=== PATIENT | male | born 1930 | race Caucasian/White ===

== ENCOUNTER 2016-05-25 10:53 | Inpatient (IN) | payer MEDICARE ==
[2016-05-25 12:13] LABS: Hematocrit 32 % (42-52); Hemoglobin 10.6 g/dl (14.0-18.0); Mean Corpuscular HGB Conc 33 g/dl (31-36); Mean Corpuscular Hemoglobin 32 pg (27-31); Mean Corpuscular Volume 95 fL (80-94); Mean Platelet Volume 10 um3 (7.4-10.4); Red Blood Count 3.35 10^6/ul (4.0-5.4); Red Cell Distribution Width 15 % (10.5-15); White Blood Count 14.7 10^3/ul (3.5-10.8)
[2016-05-25 12:30] LABS: Albumin 3.9 g/dL (3.2-5.2); BUN/Creatinine Ratio 44.9 (8-20); Calcium 9.6 mg/dL (8.6-10.3); EGFR African American 35.7 (>60); EGFR Non-African American 27.7 (>60); Globulin 2.8 g/dL (2-4); Potassium 4.8 mmol/L (3.5-5.0); Total Bilirubin 0.7 mg/dL (0.2-1.0); Total Protein 6.7 g/dL (6.4-8.9)
[2016-05-25] MEDS ORDERED: Pantoprazole IV* 40 MG IV ONE (13:29)
--- NOTE | 2016-05-25 13:40 | ED ---
Freddy Valadez Adam, scribed for Eufemia Warren MD on 05/25/16 at 1136 . Complex/Multi-Sys Presentation - HPI Summary HPI Summary: Pt is an 85 year old male presenting with black stool. He also has chronic BLE edema which has been growing worse. He denies CP, SOB, and any other complaints , although his states that he has not been feeling well for the past few days and has also developed ecchymosis in his hands. Pt was on Xarelto for about 1 month but went off it 2 days ago. Pt saw Dr. Cagle on 05/05. The note from that visit indicates that the pt had a silent SD in the past 6 months. EF of 35%, severe aortic stenosis, CHF, second degree heart block with bradycardia. They discussed the pt being on Xarelto and ASA because it is a little bit of a risk. His troponin was 0.10 that visit. PMHx also includes HLD, hypothyroidism, A Fib, PMR, spinal stenosis, chronic back pain (on narcotics), and he is on prednisone. Pt is a former smoker. Negative FMHx of HTN, DM, and cardiac disease. - History Of Current Complaint Chief Complaint: EDGIBleed Hx Obtained From: Patient Onset/Duration: Gradual Onset, Lasting Days, Still Present Timing: Constant Severity Currently: Moderate Severity Initially: Moderate Aggravating Factor(s): Unknown Alleviating Factor(s): Nothing Associated Signs And Symptoms: Positive: Other - "Not feeling well" (per pt's ), ecchymosis in hands. Negative: SOB, Chest Pain - Allergies/Home Medications Allergies/Adverse Reactions: Allergies Allergy/AdvReac Type Severity Reaction Status Date / Time Pregabalin [From Lyrica] Allergy Severe Agitation Verified 05/25/16 11:05 Tetanus Toxoid Allergy Unknown Unknown Verified 05/25/16 11:05 Reaction Details Home Medications: Home Medications Alendronate (NF) [Fosamax (NF)] 70 mg PO WEEKLY 05/25/16 [History Confirmed ] Aspirin Low Dose CHEW TAB* [Aspirin Low Dose TAB*] 81 mg PO DAILY 05/25/16 [ History Confirmed 05/25/16] Atorvastatin* [Lipitor*] 40 mg PO DAILY 05/25/16 [History Confirmed 05/25/16] Furosemide TAB* [Lasix TAB*] 60 mg PO DAILY 05/25/16 [History Confirmed 05/25/16 ] Hydrocodone-Acetaminophen [Hydrocodone/Acetaminophen 10-325 mg] 1 tab PO QID PRN MDD 4 tabs 05/25/16 [History Confirmed 05/25/16] Levothyroxine TAB* [Synthroid TAB*] 75 mcg PO DAILY 05/25/16 [History Confirmed 05/25/16] Lisinopril [Lisinopril 2.5 MG-] 2.5 mg PO DAILY 05/25/16 [History Confirmed ] Multivitamins/Minerals TAB* [Theragran/minerals TAB*] 1 tab PO DAILY 05/25/16 [ History Confirmed 05/25/16] Spironolactone [Aldactone 25 MG-] 25 mg PO DAILY 05/25/16 [History Confirmed ] predniSONE TAB* [Deltasone TAB*] 15 mg PO BEDTIME 05/25/16 [History Confirmed ] PMH/Surg Hx/FS Hx/Imm Hx Endocrine/Hematology History: Reports: Hx Thyroid Disease - HYPO Denies: Hx Anticoagulant Therapy, Hx Diabetes Cardiovascular History: Reports: Hx Valvular Heart Disease - AORTIC STENOSIS, Other Cardiovascular Problems/Disorders - bradycardia/atrial fibrillation/ flutter. On xarelto Denies: Hx Congestive Heart Failure, Hx Hypertension, Hx Pacemaker/ICD, Hx Peripheral Vascular Disease Respiratory History: Reports: Hx Asthma, Hx Sleep Apnea - CPAP 03/03/2016 GI History: Reports: Hx Gastroesophageal Reflux Disease, Hx Ulcer - 2006 History: Reports: Other Problems/Disorders - prostate ca Denies: Hx Renal Disease Musculoskeletal History: Reports: Hx Arthritis, Hx Back Problems - multiple compression fractures, Hx Orthopedic Injury - ORIF LEFT HUMERUS FX 2002, Other Musculoskeletal History - PELVIX FX Sensory History: Reports: Hx Contacts or Glasses, Hx Vision Problem, Hx Hearing Aid, Hx Hearing Problem Denies: Hx Cataracts, Hx Glaucoma Opthamlomology History: Reports: Hx Contacts or Glasses, Hx Vision Problem Denies: Hx Cataracts, Hx Glaucoma Neurological History: Reports: 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, Other Neuro Impairments/Disorders - compression fractures Denies: Hx Headaches, Hx Seizures, Hx Transient Ischemic Attacks (TIA) Psychiatric History: Denies: Hx Anxiety, Hx Depression, Hx Panic Disorder - Cancer History Cancer Type, Location and Year: PROSTATE CA 1998 Hx Chemotherapy: No Hx Radiation Therapy: No - Surgical History Surgery Procedure, Year, and Place: PROSTECTOMY 1999, HEMORRHOID, TONSILECTOMY, ORIF LEFT HUMERUS-2002 Hx Anesthesia Reactions: No - Immunization History Date of Tetanus Vaccine: allergic to tetanus hasn't had one since childhood Date of Influenza Vaccine: NONE Infectious Disease History: No Infectious Disease History: Denies: Traveled Outside the [place] in Last 30 Days - Family History Known Family History: Positive: Cardiac Disease, Hypertension, Diabetes - Social History Occupation: Retired Lives: With Family - Alcohol Use: None Hx Substance Use: Yes Substance Use Type: Reports: Prescribed Substance Use Comment - Amount & Last Used: Hydrocodone Hx Tobacco Use: Yes Smoking Status (MU): Former Smoker Amount Used/How Often: 1 PPD X 10 YEARS Review of Systems Positive: Fatigue Negative: Chest Pain Negative: Shortness Of Breath Positive: Other - Black stool Positive: Edema - BLE Positive: Bruising - Both hands All Other Systems Reviewed And Are Negative: Yes Physical Exam Triage Information Reviewed: Yes Vital Signs On Initial Exam: Initial Vitals Temp Pulse Resp BP Pulse Ox 97.8 F 46 20 99/46 96 05/25/16 11:05 05/25/16 11:05 05/25/16 11:05 05/25/16 11:05 05/25/16 11:05 Vital Signs Reviewed: Yes Appearance: Positive: Well-Appearing, No Pain Distress. Negative: Ill-Appearing Skin: Positive: Warm, Skin Color Reflects Adequate Perfusion, Dry Eyes: Positive: EOMI, JOVANY ENT: Positive: Pharynx normal, TMs normal Neck: Positive: Supple, Nontender Respiratory/Lung Sounds: Positive: Clear to Auscultation, Breath Sounds Present. Negative: Rales, Rhonchi, Wheezes Cardiovascular: Positive: Bradycardia, Murmur - Loud holosystolic murmur, Leg Edema Left, Leg Edema Right. Negative: Rub Abdomen Description: Positive: Nontender, Soft. Negative: Distended, Guarding Bowel Sounds: Positive: Present Musculoskeletal: Positive: Strength/ROM Intact, Edema Left, Edema Right Neurological: Positive: Sensory/Motor Intact, Alert, Oriented to Person Place, Time, CN Intact II-III Psychiatric: Positive: Affect/Mood Appropriate Diagnostics - Vital Signs Vital Signs Temp Pulse Resp BP Pulse Ox 05/25/16 11:05 97.8 F 46 20 99/46 96 - Laboratory Lab Results: Lab Results 05/25/16 05/25/16 05/25/16 Range/Units 11:40 11:40 11:40 WBC 14.7 H (3.5-10.8) 10^3/ul RBC 3.35 L (4.0-5.4) 10^6/ul Hgb 10.6 L (14.0-18.0) g/dl Hct 32 L (42-52) % MCV 95 H (80-94) fL MCH 32 H (27-31) pg MCHC 33 (31-36) g/dl RDW 15 (10.5-15) % Plt Count 266 (150-450) 10^3/ul MPV 10 (7.4-10.4) um3 Neut % (Auto) 90.3 H (38-83) % Lymph % (Auto) 2.0 L (25-47) % Hinds % (Auto) 6.8 (1-9) % Eos % (Auto) 0.4 (0-6) % Baso % (Auto) 0.5 (0-2) % Absolute Neuts (auto) 13.3 H (1.5-7.7) 10^3/ul Absolute Lymphs (auto) 0.3 L (1.0-4.8) 10^3/ul Absolute Monos (auto) 1.0 H (0-0.8) 10^3/ul Absolute Eos (auto) 0.1 (0-0.6) 10^3/ul Absolute Basos (auto) 0.1 (0-0.2) 10^3/ul Absolute Nucleated RBC 0 10^3/ul Nucleated RBC % 0 INR (Anticoag Therapy) 0.93 (0.89-1.11) APTT 27.2 (26.0-36.3) seconds Sodium 130 L (133-145) mmol/L Potassium 4.8 (3.5-5.0) mmol/L Chloride 92 L (101-111) mmol/L Carbon Dioxide 26 (22-32) mmol/L Anion Gap 12 H (2-11) mmol/L BUN 101 H (6-24) mg/dL Creatinine 2.25 H (0.67-1.17) mg/dL Est GFR ( Amer) 35.7 (>60) Est GFR (Non-Af Amer) 27.7 (>60) BUN/Creatinine Ratio 44.9 H (8-20) Glucose 100 (70-100) mg/dL Calcium 9.6 (8.6-10.3) mg/dL Total Bilirubin 0.70 (0.2-1.0) mg/dL AST 21 (13-39) U/L ALT 21 (7-52) U/L Alkaline Phosphatase 74 (34-104) U/L Total Protein 6.7 (6.4-8.9) g/dL Albumin 3.9 (3.2-5.2) g/dL Globulin 2.8 (2-4) g/dL Albumin/Globulin Ratio 1.4 (1-3) Blood Type Antibody Screen Crossmatch 05/25/16 Range/Units 11:40 WBC (3.5-10.8) 10^3/ul RBC (4.0-5.4) 10^6/ul Hgb (14.0-18.0) g/dl Hct (42-52) % MCV (80-94) fL MCH (27-31) pg MCHC (31-36) g/dl RDW (10.5-15) % Plt Count (150-450) 10^3/ul MPV (7.4-10.4) um3 Neut % (Auto) (38-83) % Lymph % (Auto) (25-47) % Hinds % (Auto) (1-9) % Eos % (Auto) (0-6) % Baso % (Auto) (0-2) % Absolute Neuts (auto) (1.5-7.7) 10^3/ul Absolute Lymphs (auto) (1.0-4.8) 10^3/ul Absolute Monos (auto) (0-0.8) 10^3/ul Absolute Eos (auto) (0-0.6) 10^3/ul Absolute Basos (auto) (0-0.2) 10^3/ul Absolute Nucleated RBC 10^3/ul Nucleated RBC % INR (Anticoag Therapy) (0.89-1.11) APTT (26.0-36.3) seconds Sodium (133-145) mmol/L Potassium (3.5-5.0) mmol/L Chloride (101-111) mmol/L Carbon Dioxide (22-32) mmol/L Anion Gap (2-11) mmol/L BUN (6-24) mg/dL Creatinine (0.67-1.17) mg/dL Est GFR ( Amer) (>60) Est GFR (Non-Af Amer) (>60) BUN/Creatinine Ratio (8-20) Glucose (70-100) mg/dL Calcium (8.6-10.3) mg/dL Total Bilirubin (0.2-1.0) mg/dL AST (13-39) U/L ALT (7-52) U/L Alkaline Phosphatase (34-104) U/L Total Protein (6.4-8.9) g/dL Albumin (3.2-5.2) g/dL Globulin (2-4) g/dL Albumin/Globulin Ratio (1-3) Blood Type A Positive Antibody Screen Negative Crossmatch See Detail Result Diagrams: 05/25/16 11:40 05/25/16 11:40 Lab Statement: Any lab studies that have been ordered have been reviewed, and results considered in the medical decision making process. - EKG 11:55 Cardiac Rate: Bradycardia - 40 BPM EKG Rhythm: Atrial Fibrillation EKG Comparison: No Significant Change - From 12/02/2015 - Additional Comments Diagnostic Additional Comments: Stool Occult Blood - POSITIVE Re-Evaluation - Re-Evaluation First Eval Re-Evaluation Time: 12:30 - Put EJ in patient's neck. He has a mild amount of black tarry stool and he is slightly hypotensive. Complex Multi-Symp Course/Dx Course Of Treatment: complicated 85 yo male with recent silent mi and cardiomyopathy with chf and severe aortic stenosis with gi bleed from blood thinners. Pt presented well appearing but very hypotensive with hg of 10.[address] Bains to give 1 unit blood. Family at bedside happy with decision - Diagnoses Provider Diagnoses: Hypotension, Bradycardia, GI bleed - Physician Notifications Discussed Care Of Patient With: Hospitalist at 12:33. Discussed admission for GI bleed, bradycardia, and hypotension. Dr. Bains (Hospitalist) at 12:50. Patient will be admitted. - Critical Care Time Critical Care Time: 30-74 min - 30 minutes Discharge - Discharge Plan Condition: Stable Disposition: ADMITTED TO [facility] Referrals: Bonifacio Pena MD [Primary Care Provider] - The documentation as recorded by the Freddy pastor Adam accurately reflects the service I personally performed and the decisions made by me, Eufemia Warren MD.
[2016-05-25] MEDS: Hydrocortisone INJ* 100 MG VIAL IV SCH ×2 (14:04→21:55)
[2016-05-25] MEDS: Pantoprazole IV* 80 MG in NS 0.9% 250 ML* 250 ML IVPB SCH (14:04)
--- NOTE | 2016-05-25 15:06 | RAD ---
Indication: Leukocytosis. 2 views of the chest are reviewed and compared to previous exam dated March 23, 2013. Cardiomegaly is noted. Interstitial edema consistent with CHF is noted. No alveolar consolidation is noted. No alveolar consolidation is noted. No pneumothorax is noted. IMPRESSION: Interstitial edema consistent with vascular congestion.
[2016-05-25 18:46] LABS: Hematocrit 32 % (42-52); Hemoglobin 10.6 g/dl (14.0-18.0)
--- NOTE | 2016-05-25 19:29 | HP ---
ADDENDUM NOW INCLUDED ON THIS REPORT ADMISSION HISTORY AND PHYSICAL: DATE OF ADMISSION: 05/25/16 PRIMARY CARE PROVIDER: Dr. Pena. TICKET SALES AGENT: Dr. Vern Cagle. HEALTHCARE PROXY: His . CODE STATUS: DNR; however, would want to be intubated. SOURCE OF INFORMATION: History obtained from review of past medical records as well as recent records from Dr. Cagle's office, interview with the patient, his daughter, and his . RELIABILITY: Excellent. CHIEF COMPLAINT: Directed to the emergency room by primary production machine shop supervisor. HISTORY OF PRESENT ILLNESS AND HOSPITAL COURSE: This is an 85-year-old man, past medical history of asymptomatic heart attack of the LAD within the last 6 months prior to this admission with newly depressed systolic ejection fraction, LVEF 30% to 35% on last check, severe aortic stenosis, and congestive heart failure as well as Wenckebach with bradycardia, who has been in his usual state of health, stopped taking Xarelto on Tuesday, 3 days prior to this admission because of bruising. Additionally, 3 days prior, he noticed a black stool during his daily bowel movement that was noted to be pasty, but not solid or tarry. He continued to have one black bowel movement daily for the last 3 days. He had blood work done prior to his followup with Dr. Cagle tomorrow, which indicated new chronic kidney disease and he was directed to the emergency room. The patient notes he had been increasingly weak over the last several days with increasing gait instability, difficulty walking, and body aches. Denies any cough, rhinorrhea, lightheadedness, dizziness, chest pain, or changes in his shortness of breath. His usual dyspnea on exertion when getting dressed and walking to the living room for many weeks is unchanged. He has mild epistaxis every time he eats and manifests as pink on Kleenex or tissue paper that resolves spontaneously. He has had no recent fevers or chills. He has lost significant amount of weight since April with aggressive diuresis at the direction of Cardiology. His weight this morning was 170 pounds wearing pajamas. In the emergency room, he was noted to be newly anemic. Hemoglobin of 10.6, last check was 13.4 in November with associated BUN of 101 and creatinine of 2.25. Hospitalist service was consulted for admission. PAST MEDICAL HISTORY: Suspected LAD infarct within the last 6 months; systolic congestive heart failure, last EF 30% to 35%; severe aortic stenosis; obstructive sleep apnea; GERD; history of polymyalgia rheumatica; ORIF, left distal humeral fracture, 2002; total prostatectomy in 1999 secondary to prostate adenocarcinoma and negative lymph nodes; hypothyroidism; type 1 Mobitz heart block. MEDICATIONS: Reviewed from most recent Cardiology visit: 1. Atorvastatin 40 mg daily. 2. Aspirin 81 mg daily. 3. Lasix 60 mg in the morning. 4. Xarelto 20 mg every day which the patient notes he discontinued 3 days prior to this presentation. 5. Multivitamin 1 tab daily. 6. 70 mg weekly. 7. Omeprazole 40 mg daily. 8. Spironolactone 25 mg daily. 9. Hydrocodone/acetaminophen 10/325 one tab every 4 hours. 10. Prednisone 1 mg tabs 5 in the morning and 3 in the evening, total 20 mg. 11. MiraLAX in the a.m. 12. Levothyroxine 75 mcg, increased dose starting 05/04/16. ALLERGIES: To PREGABALIN and TETANUS TOXOID. FAMILY HISTORY: Father at 90 of natural causes. Mother with DVT, age 63. SOCIAL HISTORY: Lives with his . He is retired. Former smoker, quit in . Smoked 1 pack per day for 10 to 14 years. No alcohol or drugs. REVIEW OF SYSTEMS: As per HPI including increasing weakness, decreased gait stability, body aches, and chronic dyspnea on exertion. Otherwise, negative for all other systems reviewed. PHYSICAL EXAMINATION GENERAL: Lying flat in bed, interactive, pleasant, in no apparent distress. VITAL SIGNS: When seen by this author, 91/45, heart rate 42, respiratory rate is 16, 98% on 2 L, T-max in the emergency room 97.8. HEENT: His oropharynx is clear. He has moist mucous membranes. Sclerae are anicteric. No conjunctival pallor. LUNGS: Clear. HEART: His heart rate is bradycardic with a mid-peaking 3/6 systolic ejection murmur throughout. ABDOMEN: Soft, nontender, nondistended with positive bowel sounds. EXTREMITIES: Warm and well perfused with 2+ peripheral pulses. Delayed cap refill. 2+ lower extremity edema. NEUROLOGIC: He is alert and oriented x3. His cranial nerves II through XII are intact. SKIN: Intact and dry. DIAGNOSTIC STUDIES/LAB DATA: Labs reviewed: Sodium 134, chloride 92, BUN is 101, creatinine 2.25. INR is 0.93. White blood cell count is 14.7, hemoglobin of 10.6, hematocrit of 32, platelets of 226. Data reviewed: EKG is sinus bradycardia. ASSESSMENT AND PLAN: This is an 85-year-old man, previously on aspirin, Xarelto , and steroids with history of coronary artery disease with resultant severe systolic heart failure, severe aortic stenosis, and type 1 Mobitz with resultant asymptomatic bradycardia presenting [place] [facility] [place] acute on chronic renal failure and hypotension in the setting of suspected upper gastrointestinal bleed. 1. Acute gastrointestinal hemorrhage: Hold aspirin. Continue to hold Xarelto. Hold all antihypertensives as well as Lasix. Administer Protonix 80 mg bolus now and start on Protonix drip. Trend hemoglobin and hematocrit q.6 hours. The patient to receive 1 unit of packed red blood cells now secondary to hypotension. 2. Hypotension in the setting of gastrointestinal hemorrhage: Potentially, chronotropic insufficiency contributing. Holding antihypertensive agents as above. One unit of blood as indicated above. May need addition of Lasix after receipt of volume. Continue to follow closely. Darkroom Worker consultation for further assistance. 3. Hemodynamics: Place Jolly catheter. Admit to ICU. Administer stress-dose steroids in the setting of suspected renal insufficiency on chronic daily steroids. 4. Acute on chronic kidney failure: Management as above. Suspect in the setting of upper gastrointestinal hemorrhage. 5. Hypothyroidism: Continue with levothyroxine. 6. Access: Currently two IVs, one in the right external jugular. May require central access. The patient is not averse at this point. 7. Hypertension: Holding all antihypertensives as above. 8. Bradycardia in the setting of Mobitz heart block: Close monitoring in the ICU. May require transcutaneous pacing. No intervention at this time. The patient is asymptomatic. 9. Obstructive sleep apnea: Continue CPAP while asleep. 10. Code status: DNR; however, the patient would accept intubation. ADDENDUM: DATE OF ADMISSION: 05/25/16 ASSESSMENT AND PLAN: Leukocytosis: Suspect in the setting of stress from GI bleed and/or chronic steroids; however, we will check PA and lateral chest x- ray now and urinalysis on insertion of Jolly, holding antibiotics at this time. CC: Dr. Pena; Dr. Vern Cagle* [id number]/[facility] #: [id number]/CPS #: [id number] ISMAEL
--- NOTE | 2016-05-25 19:54 | HP ---
HISTORY AND PHYSICAL: * ADDENDUM: DATE OF ADMISSION: 05/25/16 ASSESSMENT AND PLAN: Leukocytosis: Suspect in the setting of stress from GI bleed and/or chronic steroids; however, we will check PA and lateral chest x- ray now and urinalysis on insertion of Jolly, holding antibiotics at this time. [id number]/[facility] #: [id number] MTDD
[2016-05-26 00:20] LABS: Hematocrit 31 % (42-52); Hemoglobin 10.1 g/dl (14.0-18.0)
[2016-05-26] MEDS: Pantoprazole IV* 80 MG in NS 0.9% 250 ML* 250 ML IVPB SCH ×3 (01:50→14:36)
[2016-05-26] MEDS: Hydrocortisone INJ* 100 MG VIAL IV SCH ×3 (05:56→22:00)
[2016-05-26] MEDS: Levothyroxine TAB* 75 MCG TAB PO SCH (05:56)
[2016-05-26 06:12] LABS: Hematocrit 30 % (42-52)
[2016-05-26] MEDS ORDERED: Atorvastatin* 40 MG TAB PO SCH (09:00)
[2016-05-26 10:16] LABS: Calcium 8.6 mg/dL (8.6-10.3); EGFR African American 47.7 (>60); EGFR Non-African American 37.1 (>60); Potassium 3.8 mmol/L (3.5-5.0)
[2016-05-26] MEDS ORDERED: Pantoprazole IV* 40 MG ONE (11:07)
--- NOTE | 2016-05-26 11:14 | RAD ---
INDICATION: Pain and swelling. COMPARISON: Right lower extremity duplex examination December 02, 2012 TECHNIQUE: Duplex interrogation of the Lowerextremity was performed. FINDINGS: Deep veins: The common femoral, great saphenous, profunda femoris, proximal, mid, and distal deep femoral, popliteal, posterior tibial, and peroneal veins are patent. There is normal compressibility, augmentation, and phasic flow. Superficial veins: There are no findings of superficial thrombophlebitis. Popliteal fossa:There is no evidence of a popliteal cyst. Soft tissues: There is bilateral calf edema. IMPRESSION: BILATERAL CALF EDEMA. NO EVIDENCE OF DEEP VENOUS THROMBOSIS
[2016-05-26] MEDS ORDERED: Midazolam* 1 MG/ML 5 ML VIAL (5 MG) ONE (14:35)
--- NOTE | 2016-05-26 14:36 | PN ---
Subjective Date of Service: 05/26/16 Interval History: HOSPITALIST PROGRESS NOTE Patient seen and examined at bedside. He feels better this morning. Denies CP or dyspnea. No further BMs since admitted to the hospital. Family History: Unchanged from Admission Social History: Unchanged from Admission Past Medical History: Unchanged from Admission Objective Active Medications: Atorvastatin Calcium (Lipitor*) 40 mg PO DAILY [facility] Last Admin: 05/26/16 09:17 Dose: 40 mg Hydrocortisone Sodium Succinate (Solu-Cortef*) 100 mg IV Q8H [facility] Last Admin: 05/26/16 05:56 Dose: 100 mg Pantoprazole Sodium 80 mg/ (Sodium Chloride) 250 mls @ 25 mls/hr IVPB Q24H [facility] Last Admin: 05/26/16 11:29 Dose: 25 mls/hr Levothyroxine Sodium (Synthroid Tab*) 75 mcg PO 0600 [facility] Last Admin: 05/26/16 05:56 Dose: 75 mcg Vital Signs 05/26/16 05/26/16 05/26/16 12:00 13:00 14:00 Temperature 98.2 F Pulse Rate 39 72 45 Respiratory 21 21 18 Rate Blood Pressure 100/64 103/52 100/47 (mmHg) O2 Sat by Pulse 99 98 92 Oximetry Oxygen Devices in Use Now: Nasal Cannula Appearance: Pleasant elderly male lying in bed in NAD. Eyes: No Scleral Icterus Ears/Nose/Mouth/Throat: Mucous Membranes Moist Neck: Trachea Midline Respiratory: Symmetrical Chest Expansion and Respiratory Effort, Clear to Auscultation Cardiovascular: RRR - Normal S1 and S2 Abdominal: NL Sounds; No Tenderness; No Distention Extremities: - - bilateral LE edema Neurological: Alert and Oriented x 3, NL Muscle Strength and Tone, - - [place] [employer] Lines/Tubes/Other Access: Clean, Dry and Intact Peripheral IV Nutrition: Taking PO's Result Diagrams: 05/26/16 06:00 05/26/16 09:50 Assess/Plan/Problems-Billing Assessment: Mr. Hand is an 85yo M with PMH of suspected LAD infarct over the past 6 months , systolic CHF with EF 30-35%, severe , TANA, GERD, PMR, prostate CA, who presented to ED with black stools, found to have an upper GI bleed. - Patient Problems (1) Upper GI bleed Comment: - Patient's BUN is 100, suggesting an upper GI source. - GI consult requested for possible EGD. - Continue PPI drip. - Patient was on Xarelto, Aspirin 81mg, and steroids as outpatient. (2) Mobitz (type) I (Wenckebach's) atrioventricular block Comment: - Patient is in a 2:1 HB now. - Cardiology input appreciated - plan for GI w/u first, and then likely transfer to [facility] for biventricular ICD placement and consideration for TAVR. - Continue to monitor in ICU. (3) Anemia Comment: - Patient received 1 PRBC and Hb is stable around 10. - Will continue to monitor. (4) LOC (acute kidney injury) Comment: - Likely pre-renal in the setting of GI bleed, known CHF and severe . - Improving. - Continue to monitor. (5) Hypothyroidism Comment: - Continue Levothyroxine. (6) PMR (polymyalgia rheumatica) Comment: - Patient is on prednisone as outpatient. - Will continues IV Hydrocortisone for possible relative adrenal insuficiency. (7) DVT prophylaxis Comment: - Pharmacological prophylaxis contraindicated in the setting of GI bleed. - SCDs. (8) DNR (do not resuscitate) Status and Disposition: Inpatient.
[2016-05-26 17:14] LABS: Hematocrit 30 % (42-52); Hemoglobin 9.8 g/dl (14.0-18.0)
--- NOTE | 2016-05-26 19:05 | CONS ---
CARDIOLOGY CONSULTATION: DATE OF CONSULT: 05/26/16 REASON FOR CONSULTATION: Bradycardia. CHIEF COMPLAINT: Black stools. HISTORY OF PRESENT ILLNESS: Mr. Hand is an 85-year-old gentleman followed by my partner, Dr. 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 The patient presented to the hospital because of black stool and easy bruising. He had this for, by his history, for 3 to 5 days prior to admission to the hospital. He stopped taking Xarelto because of this and according to his family , aspirin had been started 3 days prior to this. The patient was feeling increasingly weak. He had trouble walking. He had gait problems and diffuse body aching. Lab work revealed that he was anemic with a markedly elevated BUN and mild elevation from his baseline creatinine. The patient was admitted for possible GI bleeding. His stool was heme positive. He was transfused with a unit of blood and was in the unit on the monitor. He showed significant bradycardia with 2:1 heart block. The patient denied feeling dizzy at the time that I saw him and in fact, following his packed red blood cells, he was feeling better than at the time of admission. He denied chest pain, pressure, heaviness, orthopnea, or PND. PAST MEDICAL HISTORY: The patient has a past medical history of aortic valve stenosis (severe) (ischemic cardiomyopathy, ejection fraction 30% to 35%) with abnormal wall motion in the anterior wall. Silent myocardial infarction sometime between December 2015 and 05/03/16. History of paroxysmal atrial fibrillation. 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 History of volume overload, congestive heart failure, polymyalgia rheumatica (on chronic steroids, unable to wean lower than 10 mg a day), arthritis, and chronic pain. Prostate adenocarcinoma, status post prostatectomy in 1999. Hypothyroid disease. Reflux. Obstructive sleep apnea. PAST SURGICAL HISTORY: Prostatectomy, elbow surgery, tonsillectomy, hemorrhoidectomy. OUTPATIENT MEDICATIONS: Included: 1. Aspirin 81 mg a day, started May 05. 2. Xarelto 20 mg a day, had been stopped by the patient 3 days prior. 3. Atorvastatin 40 mg a day. 4. Lasix 60 mg a day. 5. MultiVites. 6. Alendronate 70 mg weekly. 7. Omeprazole 40 mg a day. 8. Spironolactone 25 mg a day. 9. Hydrocodone. 10. Tylenol p.r.n. 11. Prednisone 5 mg q.a.m., 3 mg q.h.s. 12. MiraLAX. 13. CPAP q.h.s. 14. Levothyroxine 75 mcg a day. CURRENT INPATIENT MEDICATIONS: Include: 1. Protonix 80 mg a day. 2. Levothyroxine 75 mcg a day. 3. Solu-Cortef 100 mg IV q.8 hours. 4. Lipitor 40 mg a day. ALLERGIES: He has allergies of TETANUS TOXOID and PREGABALIN (LYRICA). SOCIAL HISTORY: The patient smoked cigarettes in the distant past, stopped in the . No history of alcohol use or abuse. The patient is , lives with his . Retired from [employer] in the [employer] division. REVIEW OF SYSTEMS: See history of present illness. No history of syncope, fainting, or awareness of his low heart rate. No palpitations or racing of the heart. No orthopnea or PND. PHYSICAL EXAM: The patient is 5 feet 10 inches, weighs 177 pounds with a BMI of 25.4. Blood pressure 121/52, pulse was 44 and regular, oxygen saturation is 99% on 2 L nasal cannula, and temperature 98.1. General Appearance: Elderly gentleman seated at 40 degrees, appears reasonably comfortable. Color is good. Alert. Family is with him. Psychologically, calm, cooperative, pleasant. Neurologically, quite hard of hearing, but awake, alert, and oriented to person and place. Cranial nerves: Other than his hearing, appear intact. Speech is articulate. Comprehension is good. He follows commands well. Skin: There are some ecchymotic areas noted but no appreciable cyanosis and no other lesions. HEENT: Pupils are equal and round. Mucous membranes moderately moist. Neck without increased JVP. No lymphadenopathy or thyromegaly appreciated. Breath sounds: He had some coarse rhonchi that cleared with coughing. Mild kyphoscoliosis. Coronary: S1. No S2 heard. A soft, late peaking systolic murmur heard across the upper sternal border extending to the left lower sternal border. Abdomen: Flat. Active bowel sounds. Soft, nontender. No appreciable hepatosplenomegaly. Lower extremities showed changes consistent with chronic venous stasis, but were free of edema at the time of my exam. DIAGNOSTIC STUDIES/LAB DATA: A 12-lead ECG from 05/25/16 from [facility] shows sinus rhythm with a first degree AV block and second degree heart block type 2 Wenckebach type. A 12-lead ECG from this facility, 05/25/16: Normal sinus rhythm, 80 beats a minute with 2:1 heart block. Poor R-wave progression. Left anterior fascicular block. Unremarkable ST segments. First-degree AV block noted as well. Echocardiogram from 05/03/16 shows moderate left ventricular hypertrophy, apical anterolateral wall hypokinesis with an ejection fraction of 30% to 35%, severe left atrial enlargement, normal right ventricular function, severe aortic valve stenosis, peak velocity 4.05 m/sec, mean gradient 35 mmHg, calculated aortic valve area 0.82 sq cm (VTI). Mild mitral insufficiency with severe mitral annular calcifications. Mild to moderate mitral stenosis, mean gradient 5 mmHg. Mild tricuspid insufficiency. PA pressure severely elevated at 80 mmHg. Chest x-ray from 05/25/16 consistent with congestive heart failure. Venous Doppler study showed edema in the calves bilaterally, but no thrombus. Labs: White count 14.7, hemoglobin 10.6 on admission, hematocrit 32, current hemoglobin 10, hematocrit 30 (status post packed red blood cells), INR 0.93, PTT 27.2. Sodium 128, potassium 3.8, chloride 93, bicarb 26. BUN initially 101 , now 77. Creatinine on admission 2.25, today 1.75. Glucose today 201. ALT is 21. SUMMARY: Mr. 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 I do concur with the ongoing GI workup for the GI bleed, he is at risk for AVMs as well as other GI sources. For his history of paroxysmal atrial fibrillation, coronary artery disease, on anticoagulants, it is fine to hold all anticoagulants at the current time. Fortunately, he is in sinus rhythm. We can reevaluate choice of anticoagulant following a GI workup. For the patient's bradycardia, there was a question of how much this is contributing to his BUN and creatinine. I have a low suspicion that it is contributing to his acute presentation, but he does have a relative indication for a pacemaker due to paroxysmal atrial fibrillation and tachy-luc syndrome and intermittent 2:1 heart block. I do not feel he needs an urgent pacemaker or device. I had a long discussion with the patient in the presence of his and family. He was amenable to getting a device and when I discussed defibrillator with him due to his depressed ejection fraction, he is amenable to this. This is a change from the decisions he made after extensive discussions with Dr. Cagle in the office earlier this month. Additionally, I would expect due to his first-degree and second-degree block that he would predominantly ventricularly pace and with his low ejection fraction, this raises the question of starting with a biventricular device/BARREL BANDER device initially. He would need to be transferred to an warehouse shift supervisor for ICD/BARREL BANDER device implantation, again nonurgently. I do feel that some of his renal insufficiency is from inadequate preload, but I do not think his bradycardia is a predominant problem. I think his poor perfusion is predominantly due to his aortic valve stenosis and with contribution from his mitral valve stenosis. He is frail, but may be a candidate for TAVR once his current status is optimized. For now I would continue to monitor him, avoid rate-lowering agents, continue to manage his GI bleeding, avoid volume overload, but gentle packed red blood cells as has been done is fine as indicated. Once it is felt he is stabilized, we could consider transfer for a BARREL BANDER-D device and evaluation for possible TAVR at [facility]. For the patient's cardiomyopathy, currently we are unable to give him beta blockers due to his bradycardia and we cannot give him LINDA inhibitors or ARBs due to his renal insufficiency. My hope is that with the pacemaker in place, we would at least be able to add beta carol[place] to his current regimen. Once his GI bleed is stabilized, we could reconsider adding an LINDA and I suspect he will need lifelong diuretics due to his chronic prednisone use and depressed ejection fraction. If he is able to get his aortic valve replaced, this could significantly improve blood pressure, forward flow, and renal insufficiency and allow for more aggressive congestive heart failure regimen. CC: Bonifacio Pena MD; Vern Cagle DO * [id number]/[facility] #: [id number] [facility]
--- NOTE | 2016-05-27 01:04 | PRO ---
DATE OF PROCEDURE: 05/26/16 - ROOM #ICU-12 PROCEDURE PERFORMED: Upper endoscopy. MEDICINES USED: Versed 2 mg IV. NARRATIVE: Mr. Hand is an 85-year-old gentleman with a history of heart disease, on anticoagulants who describes black stools in the last few days. He also suffered from a nosebleed. He was found to have a modest elevation in his BUN and mild anemia. He has since converted to having brown stools. Upper endoscopy was recommended for these reasons. DESCRIPTION OF PROCEDURE: After the procedure was discussed with the patient, risks and benefits were outlined, written consent was obtained. The patient was placed in the left lateral decubitus position and conscious sedation was administered. A video pediatric gastroscope was inserted orally and passed very carefully into the esophagus. The esophagus, stomach and duodenum to the second to third portion were well visualized. The patient tolerated the procedure well and there were no immediate complications. FINDINGS: The proximal and mid body of the esophagus was normal. The distal esophagus was notable for a slight scaring and a small diverticulum, which was previously noted on a previous study. There was no erosion or inflammatory change. The stomach was entered. There was no evidence of bleeding in the stomach. There was a relatively large hiatal hernia seen, but no evidence of David erosions. The gastric mucosa was normal without any gastritis or ulceration. The pylorus was normal and patent. The duodenal bulb was normal and the second to third portion of the duodenum was normal with a normal folding pattern. CONCLUSION: Hiatal hernia and small distal esophageal diverticulum, but no other gross abnormality to explain any GI bleeding. CC: Dr. Pena; Dr. Tyson* [id number]/[facility] #: [id number] [facility]
[2016-05-27 05:38] LABS: Hematocrit 29 % (42-52); Hemoglobin 9.6 g/dl (14.0-18.0); Mean Corpuscular HGB Conc 34 g/dl (31-36); Mean Corpuscular Hemoglobin 31 pg (27-31); Mean Corpuscular Volume 93 fL (80-94); Mean Platelet Volume 10 um3 (7.4-10.4); Red Blood Count 3.07 10^6/ul (4.0-5.4); Red Cell Distribution Width 16 % (10.5-15)
[2016-05-27 06:00] LABS: BUN/Creatinine Ratio 41.8 (8-20); Calcium 8.3 mg/dL (8.6-10.3); EGFR Non-African American 36.6 (>60); Potassium 4.5 mmol/L (3.5-5.0)
[2016-05-27] MEDS: Levothyroxine TAB* 75 MCG TAB PO SCH (06:47)
[2016-05-27] MEDS: Hydrocortisone INJ* 100 MG VIAL IV SCH (06:48)
[2016-05-27] MEDS ORDERED: Pantoprazole IV* 40 MG IV SCH (07:30)
--- NOTE | 2016-05-27 07:58 | PN ---
Subjective Date of Service: 05/27/16 Interval History: f/u GIB, , bradycardia, ICM/CHF s/p EGD yesterday no source of bleeding (? nose bleed vs. small bowel) creatinine still relatively elevated edema mostly resolved no chest pain or lightheadedness tele: Bradycardia/wenckebach resting ventricular rates avg ~ 40 bpm Medications Active Medications: Atorvastatin Calcium (Lipitor*) 40 mg PO DAILY [facility] Last Admin: 05/26/16 09:17 Dose: 40 mg Hydrocortisone Sodium Succinate (Solu-Cortef*) 100 mg IV Q8H [facility] Last Admin: 05/27/16 06:48 Dose: 100 mg Levothyroxine Sodium (Synthroid Tab*) 75 mcg PO 0600 [facility] Last Admin: 05/27/16 06:47 Dose: 75 mcg Pantoprazole Sodium (Protonix Iv*) 40 mg IV 0730 [facility] Objective Vital Signs: Temp Pulse Resp BP Pulse Ox 97.9 F 39 23 86/42 98 05/27/16 04:00 05/27/16 06:00 05/27/16 06:00 05/27/16 06:00 05/27/16 06:00 Oxygen Devices in Use Now: Nasal Cannula Appearance: elderly, pleasant Neck: NL Appearance and Movements; NL JVP Respiratory: Symmetrical Chest Expansion and Respiratory Effort Cardiovascular: - - trace edema, regularly irregular, bradycardia, + as murmur Abdominal: NL Sounds; No Tenderness; No Distention Extremities: No Clubbing, Cyanosis Skin: No Rash or Ulcers Neurological: Alert and Oriented x 3 Laboratory Results: 05/27/16 05:20 05/27/16 05:20 INR (Anticoag Therapy) 0.93 (0.89-1.11) 05/25/16 11:40 APTT 27.2 seconds (26.0-36.3) 05/25/16 11:40 Total Bilirubin 0.70 mg/dL (0.2-1.0) 05/25/16 11:40 AST 21 U/L (13-39) 05/25/16 11:40 ALT 21 U/L (7-52) 05/25/16 11:40 Alkaline Phosphatase 74 U/L (34-104) 05/25/16 11:40 Total Protein 6.7 g/dL (6.4-8.9) 05/25/16 11:40 Albumin 3.9 g/dL (3.2-5.2) 05/25/16 11:40 Globulin 2.8 g/dL (2-4) 05/25/16 11:40 Albumin/Globulin Ratio 1.4 (1-3) 05/25/16 11:40 Assessment/Plan 85 year old man hx of PAF, ischemic cardiomyopathy LVEF 30-35%, CHF, severe , wenckebach mobitz 1 block with resting bradycardia admitted with UGIB in setting of xarelto and aspirin use, has had gradual WRF as outpatient - I think renal failure from CHF/CRS/low output probably reduced xarelto clearance and precipitated bleeding. With amount of blood loss I think small bowel bleeding, ? heyde's still possible. Would continue to hold AC and aspirin for now but would consider starting DVT prophylaxis - Would recommend transfer to [facility] (Discussed with EP, Dr. Moore) for SUPPLIER DEVELOPMENT MANAGER pacing as CHF will be very difficult to manage without, anticipate high % pacing and isolated RV pacing in this situation could make situation worse. Also may start TAVR evaluation while there. Thank you for allowing me to participate in the cardiovascular care of this patient. Please do not hesitate to contact me with questions or concerns.
[2016-05-27] MEDS ORDERED: predniSONE TAB* 10 MG PO SCH (11:00)
[2016-05-27] MEDS ORDERED: Multivitamins/Minerals TAB PO SCH (11:00)
[2016-05-27] MEDS ORDERED: Polyethylene Glycol 3350* 17 GM PACKET PO SCH (11:00)
[2016-05-27 13:21] VITALS: BP 131/57
[2016-05-27] MEDS ORDERED: Heparin VIAL(*) 5000 UNITS/ML VIAL (FIVE THOUSAND) SUBCUT SCH (14:00)
--- NOTE | 2016-05-27 19:39 | DS ---
TRANSFER SUMMARY: DATE OF ADMISSION: 05/25/16 DATE OF TRANSFER: 05/27/16 PRIMARY CARE PHYSICIAN: Dr. Pena. COLOR PRINT INSPECTOR: Vern Cagle DO. CONSULTING COLOR PRINT INSPECTOR: Opal Tyson MD CONSULTING RETAIL LOSS PREVENTION OFFICER: Kb Villegas MD ACCEPTING COLOR PRINT INSPECTOR: Dr. Rei Moore, general office clerk at [facility]. DISCHARGE DIAGNOSES: 1. Upper GI bleed. 2. Acute blood loss anemia. 3. [id number] renal failure. 4. Mobitz I AV block. 5. Mild hyponatremia. SECONDARY DIAGNOSES: 1. Suspected LAD infarct within the last 6 months. 2. Paroxysmal atrial fibrillation. 3. Ischemic cardiomyopathy with ejection fraction of 30% to 35% and systolic congestive heart failure. 4. Severe aortic stenosis. 5. Obstructive sleep apnea. 6. Gastroesophageal reflux disease. 7. Polymyalgia rheumatica. 8. Prostate adenocarcinoma, status post total prostatectomy in 1999. 9. Hypothyroidism. MEDICATIONS AT THE TIME OF TRANSFER: 1. Atorvastatin 40 mg p.o. daily. 2. Levothyroxine 75 mcg p.o. daily. 3. Multivitamin 1 tablet p.o. daily. 4. Pantoprazole 40 mg IV daily. 5. MiraLAX 17 g p.o. daily. 6. Prednisone 15 mg p.o. daily. 7. Heparin 5000 units subcutaneously q.8 hours. HOSPITAL COURSE: Mr. Hand is an 85-year-old male with past medical history as stated above, who was being followed as outpatient by Dr. Cagle who presented to visit and was found to have complaints of black stools, increased bruising, and laboratory workup had revealed worsening of his renal function. For that reason, he was referred to the emergency room. The patient had no complaints of chest pain or shortness of breath. The patient has lost significant amount of weight in April with aggressive diuresis at the direction of Cardiology. Beyond worsening of his renal function, he was also found to be anemic with hemoglobin of 10.6 from a baseline of around 14 and for that reason, he was referred to the emergency room for further evaluation. Laboratory tests on admission showed a hemoglobin of 10.6, BUN of 100 from a baseline of 30 and a creatinine of 2.2 from a baseline of 1.3. He was admitted under the impression of an upper GI bleed. His Xarelto had been held 2 days prior to admission due to significant bruising and on admission , his aspirin was also stopped. He was started on a Protonix drip, received 1 PRBC transfusion. He was seen in consultation by Gastroenterology (Dr. Villegas) and an upper endoscopy was performed. It showed hiatal hernia with a small distal esophageal diverticulum, but no other gross abnormality to explain any GI bleeding. It is possible that the patient swallowed his epistaxis causing his black stools , but he did drop 4 g of hemoglobin from his baseline, so I suspect he probably had a small bowel bleed in the setting of Xarelto use with progressively worse renal function. While in ICU, the patient was found to be on Mobitz type I heart block with some hypotension. He was seen in consultation by Cardiology (Dr. 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 Besides GI workup, she felt that he had an indication for a pacemaker due to paroxysmal atrial fibrillation and tachy-luc syndrome and this intermittent heart block. This was discussed the patient and his family. He is amenable to getting a device and considering his depressed ejection fraction, recommendation was for a defibrillator. She expected that due to his heart block, he was predominantly ventricularly paced and with his low ejection fraction, this raises the question of starting with a biventricular device/WIRING INSPECTOR device initially. She also felt that his renal insufficiency is from inadequate preload, but she did not think that the bradycardia was the predominant problem, but mostly his low EF with severe aortic stenosis. She also felt that he may be a candidate for TAVR. His current status is optimized. I am also think that his worsening renal function is associated with diuretic and LINDA inhibitor use as outpatient, so those medications were held at this time , but eventually they will need to be resumed. The patient has remained stable in intensive care unit and he was evaluated by his mushroom sorter grader, Dr. Vern Cagle. He thinks the renal failure is secondary to congestive heart failure, chronic renal disease, low output probably reducing Xarelto clearance and precipitated bleeding. With the amount of blood loss, he felt that small bowel bleeding was still possible. He recommended continuing to hold anticoagulation and aspirin for now. Dr. Cagle recommended starting DVT prophylaxis. He discussed the patient's case with general office clerk at [facility] (Dr. Moore) and they are in agreement that the patient has an indication for WIRING INSPECTOR pacing as CHF will be very difficult to manage without, and he anticipates high percentage of pacing and isolated RV pacing in this situation could make situation worse. He may also start TAVR evaluation while there. Arrangements were made and the patient is now being transferred to [facility] for further evaluation as above. PHYSICAL EXAMINATION: Vital signs: Temperature 98.1, heart rate is 67, respiratory rate is 16, oxygen saturation 98% on room air, blood pressure is 110 /55. General: The patient is a pleasant elderly male, hard of hearing, and lying in bed in no acute distress. HEENT: Pupils are equal. Moist mucous membranes. CVS: Normal S1 and S2, with a systolic murmur. Chest: Breath sounds bilaterally with bibasilar rales. Abdomen: Soft, nontender, nondistended. Bowel sounds are present. Extremities: Bilateral lower extremity edema. Neuro: He is alert, awake, and oriented x3. Able to move all 4 extremities. DIET: Heart healthy diet. ACTIVITY: As tolerated. DISPOSITION: To [facility]. STATUS WHILE IN THE HOSPITAL: Inpatient. If you need more information, please feel free to call me at [phone] or please obtain the full medical records. TIME SPENT: Approximately 50 minutes was spent to complete this discharge. CC: Dr. Pena; Vern Cagle DO; Opal Tyson MD; Kb Villegas MD; Dr. Rei Moore, Cashier Ticket Selling at [facility] * [id number]/[facility] [place] #: [id number] [facility]D
[2016-05-27] MEDS ORDERED: predniSONE TAB* 5 MG PO SCH (21:00)
== END 2016-05-27 14:10 | disposition short-term general hospital (02) | DRG 378 ==
LOC: ED 10:53 → ICU 13:36
PROVIDERS: ADMIT Internal Medicine; ATTEND Internal Medicine
PROC: 30233N1 Transfusion of Nonautologous Red Blood Cells into Peripheral Vein, Percutaneous Approach (ICD-10-PCS; 2016-05-25)
PROC: 0T9B70Z Drainage of Bladder with Drainage Device, Via Natural or Artificial Opening (ICD-10-PCS; 2016-05-25)
PROC: 0DJ08ZZ Inspection of Upper Intestinal Tract, Via Natural or Artificial Opening Endoscopic (ICD-10-PCS; principal; 2016-05-26)
DX: K92.2 Gastrointestinal hemorrhage, unspecified (principal); D62 Acute posthemorrhagic anemia; N17.9 Acute kidney failure, unspecified; I95.9 Hypotension, unspecified; I50.22 Chronic systolic (congestive) heart failure; I44.1 Atrioventricular block, second degree; E87.1 Hypo-osmolality and hyponatremia; I48.0 Paroxysmal atrial fibrillation; I49.5 Sick sinus syndrome; N18.9 Chronic kidney disease, unspecified; I25.2 Old myocardial infarction; I25.5 Ischemic cardiomyopathy; G47.33 Obstructive sleep apnea (adult) (pediatric); K21.9 Gastro-esophageal reflux disease without esophagitis; M35.3 Polymyalgia rheumatica; Z85.46 Personal history of malignant neoplasm of prostate; E03.9 Hypothyroidism, unspecified; Z79.52 Long term (current) use of systemic steroids; K44.9 Diaphragmatic hernia without obstruction or gangrene; K22.5 Diverticulum of esophagus, acquired; T50.2X5A Adverse effect of carbonic-anhydrase inhibitors, benzothiadiazides and other diuretics, initial encounter; T46.4X5A Adverse effect of angiotensin-converting-enzyme inhibitors, initial encounter; E78.5 Hyperlipidemia, unspecified; G89.29 Other chronic pain; M54.9 Dorsalgia, unspecified; Z87.891 Personal history of nicotine dependence; Z88.8 Allergy status to other drugs, medicaments and biological substances; J45.909 Unspecified asthma, uncomplicated; M19.90 Unspecified osteoarthritis, unspecified site; Z97.4 Presence of external hearing-aid; Z83.3 Family history of diabetes mellitus; Z82.49 Family history of ischemic heart disease and other diseases of the circulatory system; Z66 Do not resuscitate; D72.829 Elevated white blood cell count, unspecified; I08.3 Combined rheumatic disorders of mitral, aortic and tricuspid valves; R04.0 Epistaxis
CPT/HCPCS: 36415; 71020; 80048; 80053; 80061; 82272; 83880; 84484; 85014; 85018; 85025; 85610; 85730; 86850; 86900; 86901; 86922; 87641; 93005; 93970; 94760; A9270-GY; J1644; J1720; J2250; J7512; P9016

== ENCOUNTER 2016-06-17 05:12 | Emergency (ER) | payer MEDICARE ==
[2016-06-17 06:38] VITALS: BP 123/60
--- NOTE | 2016-06-17 06:40 | ED ---
flaquito Valadez Timothy, scribed for Cruzito Gruber MD on 06/17/16 at 0524 . Throat Pain/Nasal Congestion - HPI Summary HPI Summary: Juliano Hand is an 85 yo male presenting to [facility] with 3/10 right ear pain and bleeding from the right ear after trying to get out of bed and catching his ear on the nightstand next to it, tearing the right ear in the process. He is not on any bloodthinners. He has no other complaints. His MHx includes hypothyroidism, hearing aids, heart murmur, [place], aortic stenosis, asthma, bronchitis, sleep apnea, GERD, ulcer, prostate CA, arthritis. - History of Current Complaint Time Seen by Provider: 06/17/16 05:18 Hx Obtained From: Patient Onset/Duration: Sudden Onset, Lasting Minutes, Still Present Severity: Moderate - Allergies/Home Medications Allergies/Adverse Reactions: Allergies Allergy/AdvReac Type Severity Reaction Status Date / Time Pregabalin [From Lyrica] Allergy Severe Agitation Verified 06/17/16 05:31 Tetanus Toxoid Allergy Unknown Unknown Verified 06/17/16 05:31 Reaction Details Home Medications: Home Medications Carvedilol [Coreg] 3.125 mg PO BID 06/17/16 [History Confirmed 06/17/16] Pantoprazole Sodium [Protonix] 20 mg PO BID 06/17/16 [History Confirmed 06/17/16 ] PMH/Surg Hx/FS Hx/Imm Hx Endocrine/Hematology History: Reports: Hx Thyroid Disease - HYPO Denies: Hx Anticoagulant Therapy - Xarelto + Aspirin Baby, Hx Diabetes Cardiovascular History: Reports: Hx Valvular Heart Disease - AORTIC STENOSIS, Other Cardiovascular Problems/Disorders - bradycardia/atrial fibrillation/ flutter. On xarelto Denies: Hx Congestive Heart Failure, Hx Hypertension, Hx Pacemaker/ICD, Hx Peripheral Vascular Disease Respiratory History: Reports: Hx Asthma, Hx Chronic Bronchitis, Hx Pneumonia, Hx Sleep Apnea - CPAP 03/03/2016 GI History: Reports: Hx Gastroesophageal Reflux Disease, Hx Ulcer - 2006 Denies: Hx Gastrointestinal Bleed History: Reports: Other Problems/Disorders - prostate ca Denies: Hx Renal Disease Musculoskeletal History: Reports: Hx Arthritis, Hx Back Problems - multiple compression fractures, Hx Orthopedic Injury - ORIF LEFT HUMERUS FX 2002, Other Musculoskeletal History - PELVIX FX Sensory History: Reports: Hx Contacts or Glasses, Hx Vision Problem, Hx Hearing Aid - Only one in place his other hearin aid stopped working today, Hx Hearing Problem Denies: Hx Cataracts, Hx Glaucoma Opthamlomology History: Reports: Hx Contacts or Glasses, Hx Vision Problem Denies: Hx Cataracts, Hx Glaucoma Neurological History: Reports: 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, Other Neuro Impairments/Disorders - compression fractures Denies: Hx Headaches, Hx Seizures, Hx Transient Ischemic Attacks (TIA) Psychiatric History: Denies: Hx Anxiety, Hx Depression, Hx Panic Disorder - Cancer History Cancer Type, Location and Year: PROSTATE CA 1998 Hx Chemotherapy: No Hx Radiation Therapy: No - Surgical History Surgery Procedure, Year, and Place: PROSTECTOMY 1999, HEMORRHOID, TONSILECTOMY, ORIF LEFT HUMERUS-2002 Hx Anesthesia Reactions: No - Immunization History Date of Tetanus Vaccine: allergic to tetanus hasn't had one since childhood Date of Influenza Vaccine: NONE - Family History Known Family History: Positive: Cardiac Disease, Hypertension, Diabetes - Social History Alcohol Use: Rare Alcohol Amount: 1x day Hx Substance Use: Yes Substance Use Type: Reports: None Substance Use Comment - Amount & Last Used: Hydrocodone Hx Tobacco Use: Yes Smoking Status (MU): Former Smoker Type: Cigarettes Amount Used/How Often: 1 PPD X 10 YEARS Review of Systems Constitutional: Negative Eyes: Negative ENT: Other - ear skin evulsion Cardiovascular: Negative Respiratory: Negative Gastrointestinal: Negative Genitourinary: Negative Musculoskeletal: Negative Skin: Negative Neurological: Negative Psychological: Normal All Other Systems Reviewed And Are Negative: Yes Physical Exam Triage Information Reviewed: Yes Vital Signs On Initial Exam: Initial Vitals Temp Pulse Resp BP Pulse Ox 98.1 F 72 16 119/71 94 06/17/16 05:13 06/17/16 05:13 06/17/16 05:13 06/17/16 05:13 06/17/16 05:13 Vital Signs Reviewed: Yes Appearance: Positive: Well-Appearing, No Pain Distress Skin: Positive: Warm, Skin Color Reflects Adequate Perfusion, Dry, Other - skin avulsion on inside of right pinnae 3cm x 1.5cm, not full thickness Head/Face: Positive: Normal Head/Face Inspection Eyes: Positive: EOMI, JOVANY ENT: Negative: Hearing grossly normal - Pt is hard of hearing, Muffled/hoarse voice Neck: Positive: Supple, Nontender Respiratory/Lung Sounds: Positive: Clear to Auscultation, Breath Sounds Present Cardiovascular: Positive: RRR Musculoskeletal: Positive: Normal, Strength/ROM Intact Neurological: Positive: Normal, Sensory/Motor Intact, Alert, Oriented to Person Place, Time Psychiatric: Positive: Affect/Mood Appropriate Procedures - Procedure Summary Procedure Summary: Pt tolerated procedure well. - Laceration/Wound Repair 1 Location: Other - right ear Description: Irregular - avulsion Length, Depth and Shape: 3cm x 1.5cm, not full thickness Betadine Prep?: No - shur-clens in saline irrigation Laceration/Wound Explored: clean Closure: Skin Adhesive Debridement: minimal Diagnostics - Vital Signs Vital Signs Temp Pulse Resp BP Pulse Ox 06/17/16 06:00 74 104/60 94 06/17/16 05:30 74 119/70 92 06/17/16 05:23 78 91 06/17/16 05:21 115/71 06/17/16 05:13 98.1 F 72 16 119/71 94 - Laboratory Lab Statement: Any lab studies that have been ordered have been reviewed, and results considered in the medical decision making process. Re-Evaluation - Re-Evaluation First Eval Re-Evaluation Time: 05:53 Change: Improved Comment: Discussed care and Tx of skin avulsion on right pinnae. Second Eval Re-Evaluation Time: 06:06 Change: Unchanged Comment: Pt is agreeable to current course of Tx. EENT Course/Dx - Course Assessment/Plan: Juliano Hand is an 85 yo male presenting to [facility] with right ear pain and skin evulsion S/P sliding out of bed and catching his right ear on a nearby night stand. After avulsion repair, he will be discharged home with appropriate instructions. RT PINNA SKIN TEAR CLEANED AND GLUED. DISCHARGE HOME STABLE. - Diagnoses Provider Diagnoses: Laceration of ear lobe Discharge - Discharge Plan Condition: Stable Disposition: HOME Patient Education Materials: Skin Adhesive Care (ED), Laceration (ED) Referrals: Bonifacio Pena MD [Primary Care Provider] - Additional Instructions: FOLLOW UP WITH YOUR DOCTOR. IF THERE IS ANY BLEEDING, APPLY DIRECT PRESSURE. RETURN TO THE EMERGENCY DEPARTMENT FOR ANY WORSENING OF YOUR CONDITION OR QUESTIONS OR CONCERNS. The documentation as recorded by the flaquito pastor Timothy accurately reflects the service I personally performed and the decisions made by me, Cruzito Gruber MD.
== END 2016-06-17 06:51 | disposition home or self-care (01) ==
LOC: ED 05:12
DX: S01.311A Laceration without foreign body of right ear, initial encounter (principal); W06.XXXA Fall from bed, initial encounter; Y93.9 Activity, unspecified; Y92.9 Unspecified place or not applicable
CPT/HCPCS: 99282

== ENCOUNTER 2016-10-07 11:03 | Emergency (ER) | payer MEDICARE ==
--- NOTE | 2016-10-07 12:56 | RAD ---
INDICATION: Remote humeral fracture. Recent fall. COMPARISON: None TECHNIQUE: AP and lateral views were obtained. FINDINGS: There are no acute bony findings. The elbow articulates normally. There is postoperative change about the distal humerus. There is no evidence of hardware failure. There is a skin laceration about the olecranon and proximal dorsal forearm. IMPRESSION: NO ACUTE FRACTURE. POSTSURGICAL CHANGE. LACERATION.
--- NOTE | 2016-10-07 13:32 | ED ---
Laceration/Wound HPI - History of Current Complaint Stated Complaint: FALL/LT ELBOW PAIN Time Seen by Provider: 10/07/16 12:21 Pain Intensity: 2 - Additional Pertinent History Primary Care Physician: LEV - Allergy/Home Medications Allergies/Adverse Reactions: Allergies Allergy/AdvReac Type Severity Reaction Status Date / Time Pregabalin [From Lyrica] Allergy Severe Agitation Verified 06/17/16 05:31 Tetanus Toxoid Allergy Unknown Unknown Verified 06/17/16 05:31 Reaction Details PMH/Surg Hx/FS Hx/Imm Hx Endocrine/Hematology History: Reports: Hx Thyroid Disease - HYPO Denies: Hx Anticoagulant Therapy - Xarelto + Aspirin Baby, Hx Diabetes Cardiovascular History: Reports: Hx Valvular Heart Disease - AORTIC STENOSIS, Other Cardiovascular Problems/Disorders - bradycardia/atrial fibrillation/ flutter. On xarelto Denies: Hx Congestive Heart Failure, Hx Hypertension, Hx Pacemaker/ICD, Hx Peripheral Vascular Disease Respiratory History: Reports: Hx Asthma, Hx Chronic Bronchitis, Hx Pneumonia, Hx Sleep Apnea - CPAP 03/03/2016 GI History: Reports: Hx Gastroesophageal Reflux Disease, Hx Ulcer - 2006 Denies: Hx Gastrointestinal Bleed History: Reports: Other Problems/Disorders - prostate ca Denies: Hx Renal Disease Musculoskeletal History: Reports: Hx Arthritis, Hx Back Problems - multiple compression fractures, Hx Orthopedic Injury - ORIF LEFT HUMERUS FX 2002, Other Musculoskeletal History - PELVIX FX Sensory History: Reports: Hx Contacts or Glasses, Hx Vision Problem, Hx Hearing Aid - Only one in place his other hearin aid stopped working today, Hx Hearing Problem Denies: Hx Cataracts, Hx Glaucoma Opthamlomology History: Reports: Hx Contacts or Glasses, Hx Vision Problem Denies: Hx Cataracts, Hx Glaucoma Neurological History: Reports: 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, Other Neuro Impairments/Disorders - compression fractures Denies: Hx Headaches, Hx Seizures, Hx Transient Ischemic Attacks (TIA) Psychiatric History: Denies: Hx Anxiety, Hx Depression, Hx Panic Disorder - Cancer History Cancer Type, Location and Year: PROSTATE CA 1998 Hx Chemotherapy: No Hx Radiation Therapy: No - Surgical History Surgery Procedure, Year, and Place: PROSTECTOMY 1999, HEMORRHOID, TONSILECTOMY, ORIF LEFT HUMERUS-2002, ESOPHAGUS STRETCHED X 2 Hx Anesthesia Reactions: No - Immunization History Date of Tetanus Vaccine: allergic to tetanus hasn't had one since childhood Date of Influenza Vaccine: NONE Infectious Disease History: No Infectious Disease History: Denies: Traveled Outside the [place] in Last 30 Days - Family History Known Family History: Positive: Cardiac Disease, Hypertension, Diabetes - Social History Alcohol Use: Rare Alcohol Amount: 1x day Hx Substance Use: Yes Substance Use Type: Reports: None Substance Use Comment - Amount & Last Used: Hydrocodone Hx Tobacco Use: Yes Smoking Status (MU): Former Smoker Type: Cigarettes Amount Used/How Often: 1 PPD X 10 YEARS Physical Exam Vital Signs On Initial Exam: Initial Vitals Temp Pulse Resp BP Pulse Ox 97.9 F 61 16 98/65 99 10/07/16 11:11 10/07/16 11:11 10/07/16 11:11 10/07/16 11:11 10/07/16 11:11 Diagnostics - Vital Signs Vital Signs Temp Pulse Resp BP Pulse Ox 10/07/16 11:12 97.9 F 61 16 98/65 99 10/07/16 11:11 97.9 F 61 16 98/65 99 - Laboratory Lab Statement: Any lab studies that have been ordered have been reviewed, and results considered in the medical decision making process. Laceration Repair Course/Dx - Clinical Impression Provider Diagnoses: Avulsion of skin of elbow Discharge - Discharge Plan Condition: Stable Disposition: HOME Patient Education Materials: Skin Avulsion (ED) Additional Instructions: Do not remove dressing for at least 48 hours. Keep clean and dry. Elevate and apply compression to help stop bleeding. Watch for signs of infection such as redness, swelling, warmth, discharge, fever /chills. Follow up with primary care provider. If symptoms worsen or do not improve and bleeding re-curs please seek medical attention.
[2016-10-07 13:51] VITALS: BP 95/65
== END 2016-10-07 13:50 | disposition home or self-care (01) ==
LOC: ED 11:03
DX: S51.012A Laceration without foreign body of left elbow, initial encounter (principal); W19.XXXA Unspecified fall, initial encounter; Y93.9 Activity, unspecified; Y92.9 Unspecified place or not applicable
CPT/HCPCS: 99283

== ENCOUNTER 2016-12-23 05:49 | Inpatient (IN) | payer MEDICARE ==
[2016-12-23] MEDS ORDERED: NS 0.9% 1000 ML* 500 ML IV ONE (07:47)
[2016-12-23 08:37] LABS: Hematocrit 40 % (42-52); Hemoglobin 13.1 g/dl (14.0-18.0); Mean Corpuscular HGB Conc 33 g/dl (31-36); Mean Corpuscular Hemoglobin 31 pg (27-31); Mean Corpuscular Volume 93 fL (80-94); Mean Platelet Volume 8 um3 (7.4-10.4); Red Blood Count 4.24 10^6/ul (4.0-5.4); Red Cell Distribution Width 17 % (10.5-15); White Blood Count 14.5 10^3/ul (3.5-10.8)
--- NOTE | 2016-12-23 08:37 | RAD ---
Indication: Abdominal pain. Flat and decubitus views of the abdomen demonstrates no free air. Dilated loops of bowel are noted. The colon is filled with fluid. IMPRESSION: No free air or obstruction is noted.
[2016-12-23 08:54] LABS: Albumin 3.7 g/dL (3.2-5.2); BUN/Creatinine Ratio 45.3 (8-20); C Reactive Protein 25.93 mg/L (< 5.00); Calcium 9.5 mg/dL (8.6-10.3); EGFR African American 30.9 (>60); EGFR Non-African American 24.1 (>60); Globulin 3.3 g/dL (2-4); Potassium 2.9 mmol/L (3.5-5.0)
[2016-12-23] MEDS ORDERED: Potassium Chlor TAB* 20 MEQ TAB.ER PO ONE (08:58)
[2016-12-23] MEDS ORDERED: KCL 10 MEQ/50 ML IVPREMIX* 10 MEQ/50 ML BAG IV ONE (08:58)
[2016-12-23 12:43] LABS: Urine Bilirubin Negative (Negative); Urine Glucose Negative (Negative); Urine Nitrite Negative (Negative)
[2016-12-23 12:57] LABS: Urine Bacteria Absent (Absent)
[2016-12-23] MEDS ORDERED: Ondansetron INJ* 2 MG/ML VIAL IV PRN (12:59)
[2016-12-23] MEDS ORDERED: Acetaminophen TAB* 325 MG PO PRN (12:59)
[2016-12-23] MEDS ORDERED: NS 0.9% 1000 ML* 1,000 ML IV SCH (13:00)
--- NOTE | 2016-12-23 13:32 | RAD ---
HISTORY: CHF, hypertension COMPARISONS: May 25, 2016 VIEWS: 2: frontal portable view of the chest at 1:10 PM FINDINGS: LINES AND TUBES: A left-sided pacemaker is noted CARDIOMEDIASTINAL SILHOUETTE: The cardiomediastinal silhouette is stable. PLEURA: The costophrenic angles are sharp. No pleural abnormalities are noted. LUNG PARENCHYMA: The lung volumes are low. ABDOMEN: The upper abdomen is clear. There is no subphrenic gas. BONES AND SOFT TISSUES: No bone or soft tissue abnormalities are noted. IMPRESSION: LOW LUNG VOLUMES. NO ACTIVE CARDIOPULMONARY DISEASE.
--- NOTE | 2016-12-23 16:26 | RAD ---
INDICATION: Abdominal pain. Acute renal failure, hypokalemia, weakness. Post prostatectomy. COMPARISON: August 18, 2013 CT abdomen. TECHNIQUE: Multidetector CT images were obtained from the lung bases to the ischial tuberosities. Oral contrast administered. Assessment of the visceral limited without IV contrast. REPORT: The visualized lung bases are remarkable for emphysema, cardiomegaly, RIGHT atrial, RIGHT ventricular, and coronary sinus pacemaker leads. Negative for pericardial effusion. Unremarkable unenhanced liver, gallbladder, spleen. Atrophic pancreas without suspicious finding. Negative for CT abnormality of the upper GI or small bowel. While the appendix is not discretely visualized, there is no inflammatory change in the right lower quadrant or region of the tip of the cecum to suggest presence of an acute inflammatory process. Enteric contrast extends to the splenic flexure. Large fat and sigmoid colon containing probable direct LEFT inguinal hernia without inflammatory change or resulting bowel obstruction. Moderate rectal distention with stool. Negative for ascites or free air. Normal adrenal glands. Negative for urolithiasis or obstructive uropathy. No focal renal lesions evident. Negative for CT abnormality of the ureters. Unremarkable distended urinary bladder. Post prostatectomy. Negative for lymphadenopathy. 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 Physiologic partial distention of the IVC. Healed LEFT pelvic fractures. Healed LEFT posterior inferior rib fractures. Unchanged anterior and middle column L3 and T12 compression fractures. Severe anterior and middle column compression fracture at L2 is new compared with the 2013 exam without definitive acute features. Partially visualized T9 vertebral compression fracture. Multilevel acquired spinal stenosis with severe acquired central canal stenosis at the L3 level due to dorsal displacement of the middle column of the L3 vertebral body and posterior element hypertrophy as well as at the L3-L4 and L4-L5 disc levels due to degenerative spondylosis and posterior element osteoarthritis without significant interval change. IMPRESSION: 1. Large fat and sigmoid colon containing probable direct LEFT inguinal hernia without inflammatory change or resulting bowel obstruction. The hernia is new compared with the 2014 exam. 2. Negative for obstructive uropathy. 3. 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
[2016-12-23] MEDS: Heparin VIAL(*) 5000 UNITS/ML VIAL (FIVE THOUSAND) SUBCUT SCH ×2 (16:27→22:52)
[2016-12-23] MEDS: KCL 10 MEQ/50 ML IVPREMIX* 10 MEQ/50 ML BAG IV SCH (16:30)
--- NOTE | 2016-12-23 16:33 | ED ---
Toi Valadez Angela, scribed for Akin Laoiza MD on 12/23/16 at 0742 . Abdominal Pain/Male - HPI Summary HPI Summary: This pt is a 86 y/o male accompanied by and daughter presenting to [facility] c/ o diarrhea since yesterday. Pt states his buttocks and rectum is sore due to excessive diarrhea all night yesterday. Per daughter, pt takes Miralax every day. When the pt takes 2 or 3 days off Miralax, he gets constipated. When his bowel movements get loose he stops or takes a decreased dose of Miralax. Per and daughter, it is unknown if pt took Miralax yesterday. Pt additionally c /o chronic back pain and has difficulty ambulating secondary to pain. Pt has a pacemaker. 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 - History of Current Complaint Chief Complaint: EDAbdPain Stated Complaint: ABD PAIN Time Seen by Provider: 12/23/16 07:23 Hx Obtained From: Patient, Family/Typewriter Assembler - daughter and Onset/Duration: Lasting Hours Timing: Lasting Hours Pain Intensity: 9 Associated Signs And Symptoms: Positive: Back Pain - chronic, Diarrhea - Allergies/Home Medications Allergies/Adverse Reactions: Allergies Allergy/AdvReac Type Severity Reaction Status Date / Time Pregabalin [From Lyrica] Allergy Severe Agitation Verified 06/17/16 05:31 Tetanus Toxoid Allergy Unknown Unknown Verified 06/17/16 05:31 Reaction Details Home Medications: Home Medications Lisinopril TAB* [Prinivil TAB*] 2.5 mg PO Q48H 12/23/16 [History Confirmed 12/23] Metolazone TAB* [Zaroxolyn TAB*] 2.5 mg PO MOTUWE 12/23/16 [History Confirmed ] Torsemide TAB* [Demadex*] 40 mg PO DAILY 12/23/16 [History Confirmed 12/23/16] PMH/Surg Hx/FS Hx/Imm Hx Endocrine/Hematology History: Reports: Hx Thyroid Disease - HYPO Denies: Hx Anticoagulant Therapy - Aspirin Baby, Hx Diabetes Cardiovascular History: Reports: Hx Pacemaker/ICD, Hx Valvular Heart Disease - AORTIC STENOSIS, Other Cardiovascular Problems/Disorders - bradycardia/atrial fibrillation/flutter. On xarelto Denies: Hx Congestive Heart Failure, Hx Hypertension, Hx Peripheral Vascular Disease Respiratory History: Reports: Hx Asthma, Hx Chronic Bronchitis, Hx Pneumonia, Hx Sleep Apnea - CPAP 03/03/2016 GI History: Reports: Hx Gastroesophageal Reflux Disease, Hx Ulcer - 2006 Denies: Hx Gastrointestinal Bleed History: Reports: Other Problems/Disorders - prostate ca Denies: Hx Renal Disease Musculoskeletal History: Reports: Hx Arthritis, Hx Back Problems - multiple compression fractures, Hx Orthopedic Injury - ORIF LEFT HUMERUS FX 2002, Other Musculoskeletal History - PELVIX FX Sensory History: Reports: Hx Contacts or Glasses, Hx Vision Problem, Hx Hearing Aid - Only one in place his other hearin aid stopped working today, Hx Hearing Problem Denies: Hx Cataracts, Hx Glaucoma Opthamlomology History: Reports: Hx Contacts or Glasses, Hx Vision Problem Denies: Hx Cataracts, Hx Glaucoma Neurological History: Reports: 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, Other Neuro Impairments/Disorders - compression fractures Denies: Hx Headaches, Hx Seizures, Hx Transient Ischemic Attacks (TIA) Psychiatric History: Denies: Hx Anxiety, Hx Depression, Hx Panic Disorder - Cancer History Cancer Type, Location and Year: PROSTATE CA 1998 Hx Chemotherapy: No Hx Radiation Therapy: No - Surgical History Surgery Procedure, Year, and Place: PROSTECTOMY 1999, HEMORRHOID, TONSILECTOMY, ORIF LEFT HUMERUS-2002, ESOPHAGUS STRETCHED X 2 Hx Anesthesia Reactions: No - Immunization History Date of Tetanus Vaccine: allergic to tetanus hasn't had one since childhood Date of Influenza Vaccine: NONE Infectious Disease History: No Infectious Disease History: Denies: Traveled Outside the [place] in Last 30 Days - Family History Known Family History: Positive: Cardiac Disease, Hypertension, Diabetes - Social History Alcohol Use: Rare Alcohol Amount: 1x day Hx Substance Use: Yes Substance Use Type: Reports: None Substance Use Comment - Amount & Last Used: Hydrocodone Hx Tobacco Use: Yes Smoking Status (MU): Former Smoker Type: Cigarettes Amount Used/How Often: 1 PPD X 10 YEARS Review of Systems Negative: Fever, Chills ENT: Negative Negative: Chest Pain Negative: Shortness Of Breath Positive: Diarrhea, Other - sore rectum and buttocks Genitourinary: Negative Positive: Other - chronic back pain All Other Systems Reviewed And Are Negative: Yes Physical Exam - Summary Physical Exam Summary: VITAL SIGNS: Reviewed. GENERAL: ~Patient is a well-developed and nourished male who is lying comfortable in the stretcher. ~Patient is not in any acute respiratory distress. Pt has some overall weakness. HEAD AND FACE: No signs of trauma. ~No ecchymosis, hematomas or skull depressions. No sinus tenderness. EYES: PERRLA, EOMI x 2, No injected conjunctiva, no nystagmus. EARS: Hearing grossly intact. Ear canals and tympanic membranes are within normal limits. MOUTH: Oropharynx within normal limits. NECK: Supple, trachea is midline, no adenopathy, no JVD, no carotid bruit, no c- spine tenderness, neck with full ROM. CHEST: Symmetric, no tenderness at palpation LUNGS: Clear to auscultation bilaterally. No wheezing or crackles. CVS: Regular rate and rhythm, S1 and S2 present, no murmurs or gallops appreciated. ABDOMEN: Soft, non-tender. No signs of distention. No rebound no guarding, and no masses palpated. Bowel sounds are normal. Rectal exam: erythematous and there is solid stool. EXTREMITIES: FROM in all major joints, no cyanosis or clubbing. There is mild edema more on the left than right lower extremity. NEURO: Alert and oriented x 3. No acute neurological deficits. Speech is normal and follows commands. SKIN: Dry and warm Triage Information Reviewed: Yes Vital Signs On Initial Exam: Initial Vitals Temp Pulse Resp BP Pulse Ox 98.5 F 62 18 114/76 97 12/23/16 05:50 12/23/16 05:50 12/23/16 05:50 12/23/16 05:50 12/23/16 05:50 Vital Signs Reviewed: Yes - [place] Coma Scale Coma Scale Total: 15 Diagnostics - Vital Signs Vital Signs Temp Pulse Resp BP Pulse Ox 12/23/16 06:47 65 100 12/23/16 06:30 179 116/72 63 12/23/16 06:00 60 94/56 95 12/23/16 05:50 98.5 F 62 18 114/76 97 - Laboratory Lab Results: Lab Results 12/23/16 12/23/16 12/23/16 Range/Units 08:20 08:20 09:45 WBC 14.5 H (3.5-10.8) 10^3/ul RBC 4.24 (4.0-5.4) 10^6/ul Hgb 13.1 L (14.0-18.0) g/dl Hct 40 L (42-52) % MCV 93 (80-94) fL MCH 31 (27-31) pg MCHC 33 (31-36) g/dl RDW 17 H (10.5-15) % Plt Count 253 (150-450) 10^3/ul MPV 8 (7.4-10.4) um3 Neut % (Auto) 88.2 H (38-83) % Lymph % (Auto) 2.6 L (25-47) % [place] % (Auto) 8.6 (1-9) % Eos % (Auto) 0.2 (0-6) % Baso % (Auto) 0.4 (0-2) % Absolute Neuts (auto) 12.8 H (1.5-7.7) 10^3/ul Absolute Lymphs (auto) 0.4 L (1.0-4.8) 10^3/ul Absolute Monos (auto) 1.2 H (0-0.8) 10^3/ul Absolute Eos (auto) 0 (0-0.6) 10^3/ul Absolute Basos (auto) 0.1 (0-0.2) 10^3/ul Absolute Nucleated RBC 0.01 10^3/ul Nucleated RBC % 0 Sodium 137 (133-145) mmol/L Potassium 2.9 L (3.5-5.0) mmol/L Chloride 94 L (101-111) mmol/L Carbon Dioxide 31 (22-32) mmol/L Anion Gap 12 H (2-11) mmol/L BUN 115 H (6-24) mg/dL Creatinine 2.54 H (0.67-1.17) mg/dL Est GFR ( Amer) 30.9 (>60) Est GFR (Non-Af Amer) 24.1 (>60) BUN/Creatinine Ratio 45.3 H (8-20) Glucose 105 H (70-100) mg/dL Calcium 9.5 (8.6-10.3) mg/dL Magnesium 3.0 H (1.9-2.7) mg/dL Total Bilirubin 1.00 (0.2-1.0) mg/dL AST 23 (13-39) U/L ALT 15 (7-52) U/L Alkaline Phosphatase 59 (34-104) U/L C-Reactive Protein 25.93 H (< 5.00) mg/L Total Protein 7.0 (6.4-8.9) g/dL Albumin 3.7 (3.2-5.2) g/dL Globulin 3.3 (2-4) g/dL Albumin/Globulin Ratio 1.1 (1-3) Lipase 29 (11.0-82.0) U/L Urine Color Yellow Urine Appearance Clear Urine pH 6 (5-9) Ur Specific [place] 1.010 (1.010-1.030) Urine Protein Negative (Negative) Urine Ketones Negative (Negative) Urine Blood Negative (Negative) Urine Nitrate Negative (Negative) Urine Bilirubin Negative (Negative) Urine Urobilinogen Negative (Negative) Ur Leukocyte Esterase Negative (Negative) Urine WBC (Auto) Absent (Absent) Urine RBC (Auto) Trace(0-2/hpf) (Absent) Ur Squamous Epith Cells Present H (Absent) Urine Bacteria Absent (Absent) Hyaline Casts Present H (Absent) Urine Glucose Negative (Negative) Urine Ascorbic Acid * H (Negative) Result Diagrams: 12/23/16 08:20 12/23/16 08:20 Lab Statement: Any lab studies that have been ordered have been reviewed, and results considered in the medical decision making process. - Radiology Abdomen XR Xray Interpretation: No Acute Changes - IMPRESSION: No free air or obstuctions is noted. ED physician has reviewed this radiology report and agrees. Radiology Interpretation Completed By: Radiologist - EKG 0823 Cardiac Rate: NL - 61 bpm EKG Interpretation: Ventricular paced rhythm at 61 bpm. Abdominal Pain Fem Course/Dx - Course Assessment/Plan: This pt is a 86 y/o male accompanied by and daughter presenting to [facility] c/o diarrhea since yesterday. Pt states his buttocks and rectum is sore due to excessive diarrhea all night yesterday. Per daughter, pt takes Miralax every day. When the pt takes 2 or 3 days off Miralax, he gets constipated. When his bowel movements get loose he stops or takes a decreased dose of Miralax. Per and daughter, it is unknown if pt took Miralax yesterday. Pt additionally c/o chronic back pain and has difficulty ambulating secondary to pain. Pt has a pacemaker. Tests results are without any significant abnormalities except for WBC of 14.5, slight chronic anemia and no bandemia, potassium of 2.9, H and H of 13.1/40, creatinine of 2.54 consistent with chronic renal failure and dehydration, CRP of 25.9. Urinalysis is negative for UTI. In the ED course, the pt was given IV fluids. The pt did not have any complaints. Pt had 2 bowel movements, which were formed and not liquidy. We tried ambulating the pt but he was very weak. I discussed the case with GABRIELLE Durbin from Dr. Foster's hospitalist service. Dr. Foster agreed to admit the pt to his services. Pt is hemodynamically stable, alert and oriented x3. - Diagnoses Differential Diagnosis/HQI/PQRI: Constipation, Urinary Tract Infection, Other - dehydration, weakness Provider Diagnoses: Weakness, Dehydration, Acute on chronic renal failure - Provider Notifications Discussed Care Of Patient With: Benigno Foster Instructed by Provider To: Other - I discussed the pt's case with GABRIELLE Durbin who discussed with Dr. Foster. He has agreed to admit the pt. Discharge - Discharge Plan Condition: Stable Disposition: ADMITTED TO [facility] documentation as recorded by the Tio pastor Angela accurately reflects the service I personally performed and the decisions made by me, Akin Loaiza MD.
--- NOTE | 2016-12-23 18:44 | HP ---
CC: Dr. Pnea; Dr. Cagle * HISTORY AND PHYSICAL: DATE OF ADMISSION: 12/23/16 PRIMARY CARE PROVIDER: Dr. Pena. ATTENDING PHYSICIAN WHILE IN THE HOSPITAL: Benigno Foster MD * (report dictated by Camron Chavira NP). CHIEF COMPLAINT: 1. Weakness. 2. Frequent stools. HISTORY OF PRESENT ILLNESS: Mr. Hand is an 86-year-old male patient. He has multiple medical problems. He has a history of MD, cardiomyopathy EF of 30% to 35%, aortic stenosis that is severe in which he refused a TAVR. He has a history of CHF, he is on multiple diuretics. History of TANA, history of CKD, history of GERD, PMR, prostate cancer, hypothyroidism, history of GI bleed, history of spinal stenosis. He recently was here in May, was transferred to [facility] for which he underwent implantation of a pacemaker. He comes back today and he is really not able to give much history. Most of the history is obtained from the . The has noted that the patient has been progressively weak and over the last couple of weeks, he has not been taking good p.o. He has been losing weight. She says that he typically takes a MiraLax every day and he took a MiraLax last night and then throughout the night , he was having bowel movements all night long. The says that there was no melena noted and she also says that they were not loose and he did not appear to be having diarrhea and he has not had any recent antibiotics. The patient does admit to having some back pain. He denied having any chest pain or any worsening shortness of breath and the says that she has recently noted he has been increasingly more weak and lethargic. He has been taking his meds as prescribed, but his p.o. intake has not been as good as it normally is. She was concerned because he just seemed to be failing and she brought him in to the hospital today to be evaluated. She called 911. There has been no reports of fever. No reports of cough. No reports of vomiting. He came in, was evaluated and it was noted that he had an elevated white count. It was noted that he appeared to be in [id number] renal failure and also appeared to be significantly dehydrated, so we were asked to evaluate for admission. PAST MEDICAL HISTORY: Significant for: 1. MD. 2. Cardiomyopathy, EF 30% to 35%. 3. Severe stenosis refusing TAVR. 4. CHF. 5. TANA, noncompliant with mask. 6. GERD. 7. PMR. 8. Prostate cancer. 9. Hypothyroidism. 10. History of GI bleed. 11. Spinal stenosis. PAST SURGICAL HISTORY: 1. The patient has had an ORIF of the left humerus. 2. Total prostatectomy. 3. Pacemaker. MEDICATIONS: His home meds according to the list that we were able to obtain include: 1. Demadex 40 mg daily. 2. Metolazone 2.5 mg Tuesday, Tuesday, Tuesday. 3. Lisinopril 2.5 mg p.o. 48 hours. 4. Fosamax 70 mg p.o. weekly. 5. [place] 1 tablet 4 times a day as needed. 6. Carvedilol 3.125 mg p.o. b.i.d. 7. Lipitor 40 mg a day. 8. Prednisone 5 mg p.o. b.i.d. 9. Aldactone 25 mg daily. 10. MiraLax 17 g p.o. daily. 11. Protonix 40 mg p.o. b.i.d. 12. Multivitamin 1 tab daily. 13. Synthroid 75 mcg daily. ALLERGIES TO MEDICATIONS: LYRICA and TETANUS. FAMILY HISTORY: Mother had a history of DVT. Father of natural causes. SOCIAL HISTORY: He is a former smoker, he quit about 30 years ago. He lives with his . Surrogate decision maker is his . He does not drink alcohol. REVIEW OF SYSTEMS: There is no documented fever. He denied having any significant weight change. There was no double vision. He denies having any rhinorrhea. No sore throat. No thyroid enlargement. There was no reports of chest pain. No orthopnea. No nocturnal dyspnea. There was no abdominal pain. No nausea, no vomiting. No dysuria, no frequency. There was no seizure, no loss of consciousness. No pruritus and no skin ulcerations. Review of 14 systems completed, all others negative. PHYSICAL EXAMINATION GENERAL: At this time, Mr. Hand is an 86-year-old male patient. He is sitting in the ER stretcher. He does not appear to be in any acute distress. VITAL SIGNS: Blood pressure 103/65, pulse 60, respirations were 18, O2 sat 99% , temperature 98.4. HEENT: Head: Atraumatic, normocephalic. Eyes: EOMs are intact. Sclerae anicteric. NECK: Supple. Throat: Oral mucosa appears to be dry. No oropharyngeal erythema. HEART: Heart sounds S1 and S2. Regular rate and rhythm. No murmurs, rubs, or gallops. LUNGS: Clear to auscultation. No wheezes, rales, or rhonchi. ABDOMEN: Soft, flat. There was tenderness though in the right lower and left lower quadrants. He did have some tenderness on his left flank as well. He had bowel sounds present. EXTREMITIES: Pulses are 2+ throughout. His left leg did appear to be slightly more swollen than his right, but this is chronic per the family. He had 5/5 strength. NEUROLOGIC: He is definitely drowsy. He will awaken to his name. He follows commands. His speech was clear. He is awake and alert to himself only. He had no gross obvious focal deficits. SKIN: Intact. LABORATORY DATA/DIAGNOSTIC STUDIES: His labs today revealed WBC of 14.5, RBC of 4.24, hemoglobin 13.1, hematocrit of 40, platelet count of 253,000. His sodium was 137, potassium 2.9, chloride of 94, his bicarb was 31, his BUN was 115, his creatinine 2.4. His baseline creatinine appears to be right around 1.8. He has again the BUN of 115. The glucose was 105, calcium 9.5, mag 3.0. Total bili 1, AST 22, ALT 15, alk phos 59. CRP 25. Albumin 3.7. Urine was obtained, it was negative. He did have an EKG obtained today which did show a ventricular paced rhythm at a rate of 61. He had an abdominal x-ray obtained today which showed no free air or obstruction noted. Old medical records were reviewed. ASSESSMENT AND PLAN: Mr. Hand is an 86-year-old male patient with multiple medical problems coming in to the ER today with complaints of weakness, on evaluation was found to be in acute renal failure and leukocytosis. He will be admitted under inpatient status for: 1. Acute renal failure. At this point, I suspect this is prerenal, possibly from a low flow state secondary to his heart, also possibly from dehydration. My plan is to go ahead and get a FeNa, put a catheter in to follow his urine output closely, given I will be ordering iv fluids and with his history of cardiomyopathy I would like to make sure his kidneys are perfusing. I am also going to get a CT of the abdomen and pelvis to make sure there is no obstructive uropathy and to continue to follow him. We will hydrate him slowly , hold his diuretics and hold nephrotoxic agents and diurese as needed. Follow closely. 2. Leukocytosis. Etiology is unclear. He was having according to the no diarrhea, but in the ED today, it was noted that he did have a loose stool. We will send off stool cultures. This could be gastroenteritis. It could just be related to the fact he is on chronic prednisone, but he is also immunocompromised. He does have some tenderness as well. My plan is to go ahead and get a CT of the abdomen and pelvis, holding on antibiotics. We will vitale culture him and we will continue to follow him closely as he was tender on the lower quadrants on exam. 3. History of myocardial infarction and cardiomyopathy. His blood pressures are soft currently. I am going to just continue the Coreg, holding on diuretics. We will diurese him as needed and will follow. 4. Aortic stenosis. He has refused TAVR. He can follow up with his primary bar steward. 5. Congestive heart failure. He does not appear to be in failure. He actually appears to be quite dry at this point. We will go ahead and give him some fluids slowly and diurese as needed. 6. Obstructive sleep apnea. Noncompliant with mask. I would recommend O2 at night. 7. Gastroesophageal reflux disease. Continue his PPI therapy. 8. Polymyalgia rheumatica. Continue prednisone. 9. Prostate cancer. He can follow up with his primary. 10. Hypothyroidism. Continue Synthroid. 11. Gastrointestinal bleed. It does not appear to be an acute issue currently. We will monitor. 12. Spinal stenosis. P.r.n. Tylenol is available. 13. Altered mental status and weakness. Again, this could be related to underlying infection. The cause of this could be related to medications. We are holding his [place] and we will follow him closely. 14. DVT prophylaxis. He will be placed on heparin subcu. 15. Code status. He wishes to be a DNR. 16. Fluids, electrolytes, nutrition. He can have a heart healthy diet. TIME SPENT: Time spent on this admission was 50 minutes, greater than half the time spent face to face with the patient, obtaining my history and physical, the other half time spent going over the plan of care with the patient, implementing plan of care. I discussed the plan of care with my attending, Dr. Foster, and he is in agreement. CAMRON CHAVIRA, DIRECTOR OF HOTEL [id number]/CPS #: [id number] MTDMargaret
[2016-12-23] MEDS ORDERED: Omeprazole CAP* 20 MG PO SCH (21:00)
[2016-12-23] MEDS ORDERED: predniSONE TAB* 5 MG PO SCH (21:00)
[2016-12-23] MEDS ORDERED: Carvedilol TAB* 3.125 MG PO SCH (21:00)
--- NOTE | 2016-12-23 22:39 | RAD ---
INDICATION: Urinary retention. Jolly catheter is not draining urine. COMPARISON: None TECHNIQUE: Real time ultrasound images of the urinary bladder were acquired with infante scale and Doppler color flow imaging. FINDINGS: The urinary bladder measures 13 x 9.3 x 8.4 cm yielding an approximate volume of 530 mL. Ureteral jets were not identified bilaterally. The Jolly catheter balloon or any other iatrogenic device is not seen in the urinary bladder. Immediately inferior to the urinary bladder, below the level of the trigone there is what appears to be a catheter with a balloon. IMPRESSION: Sonographic findings indicate the Jolly catheter balloon is inflated in either the prostatic or membranous urethra.
[2016-12-23] MEDS ORDERED: Morphine INJ* 2 MG/ML 1 ML SYRINGE (TWO MG - NEW SYRINGE VERSION) IV ONE (22:53)
--- NOTE | 2016-12-23 23:39 | PN ---
Progress Note - Progress Note Date of Service: 12/23/16 Note: Spoke with Dr. Kraft about failed attempts to place Jolly cath. Dr. Kraft recommended no further bladder scans and will evaluate pt in AM. He asks that the provider call Dr. Kraft after 7 AM to remind about the consult. Will hold heparin sc due to blood at the meatus and possible need of urologic intervention in AM
[2016-12-24] MEDS ORDERED: KCL 10 MEQ/50 ML IVPREMIX* 10 MEQ/50 ML BAG ONE (00:53)
[2016-12-24] MEDS: KCL 10 MEQ/50 ML IVPREMIX* 10 MEQ/50 ML BAG IV SCH (00:58)
[2016-12-24 05:32] LABS: Hematocrit 36 % (42-52); Hemoglobin 11.7 g/dl (14.0-18.0); Mean Corpuscular HGB Conc 33 g/dl (31-36); Mean Corpuscular Hemoglobin 31 pg (27-31); Mean Corpuscular Volume 94 fL (80-94); Mean Platelet Volume 9 um3 (7.4-10.4); Red Blood Count 3.78 10^6/ul (4.0-5.4); Red Cell Distribution Width 16 % (10.5-15); White Blood Count 16.3 10^3/ul (3.5-10.8)
[2016-12-24 05:50] LABS: BUN/Creatinine Ratio 52.5 (8-20); Calcium 8.8 mg/dL (8.6-10.3); EGFR African American 46.3 (>60); Potassium 3.4 mmol/L (3.5-5.0)
[2016-12-24] MEDS ORDERED: Morphine INJ* 2 MG/ML 1 ML SYRINGE (TWO MG - NEW SYRINGE VERSION) IV ONE (05:54)
[2016-12-24] MEDS ORDERED: Levothyroxine TAB* 75 MCG TAB PO SCH (06:00)
--- NOTE | 2016-12-24 07:42 | RAD ---
INDICATION: Altered mental status. Weakness. COMPARISON: March 23, 2013 TECHNIQUE: Noncontrast axial source images were acquired from the skull base to the vertex. FINDINGS: Ventricles/sulci: There is progressive cortical atrophy with compensatory dilatation of the CSF spaces. Brain parenchyma: There is no focal parenchymal finding, evidence of intracranial mass, or intracranial mass effect. Intracranial hemorrhage:None. Extra-axial spaces: There are no abnormal extra axial fluid collections or evidence of extra-axial mass. Calvarium: There is no calvarial fracture or other calvarial abnormality. Scalp: There is no evidence of scalp or extracalvarial soft tissue abnormality. Paranasal sinuses/mastoid: The paranasal sinuses and mastoid air cells are clear. Other: None. IMPRESSION: PROGRESSIVE CORTICAL ATROPHY WITH CHRONIC MICROVASCULAR ISCHEMIC CHANGES.
[2016-12-24] MEDS ORDERED: Vancomycin(*) 1,000 MG in NS 0.9% 250 ML* 250 ML IVPB ONE (08:00)
[2016-12-24 08:03] LABS: FIO2 15
[2016-12-24 08:12] LABS: PCO2 Arterial 29 mmHg (35-45)
[2016-12-24] MEDS ORDERED: Vancomycin per Pharmacy* NOTE FOLLOW UP PRN (08:28)
--- NOTE | 2016-12-24 08:41 | RAD ---
Indication: Respiratory distress. Cardiac disease. History of tobacco use and obstructive lung disease. Comparison: December 23, 2016 CT abdomen and September 13, 2016 CT chest. Technique: Upright AP 0718 hours Report: Suboptimal inspiration with resulting crowding of the pulmonary markings and subsegmental atelectasis. Grossly clear pleural spaces. Negative for pneumothorax. RIGHT atrial, RIGHT ventricular, and coronary sinus level pacemaker leads. Cardiomegaly. Prominent central pulmonary vasculature with peripheral attenuation. Negative for free air beneath the diaphragm. IMPRESSION: Hypoventilated exam for this patient with resulting subsegmental atelectasis. Probable pulmonary arterial hypertension.
[2016-12-24] MEDS ORDERED: Vancomycin(*) 1,000 MG in NS 0.9% 250 ML* 250 ML IVPB SCH (09:00)
[2016-12-24] MEDS ORDERED: Atorvastatin* 40 MG TAB PO SCH (09:00)
[2016-12-24] MEDS ORDERED: Zosyn per Pharmacy* NOTE FOLLOW UP SCH (09:00)
[2016-12-24] MEDS ORDERED: Polyethylene Glycol 3350* 17 GM PACKET PO SCH (09:00)
[2016-12-24] MEDS ORDERED: ZOSYN 3.375 GM x ONE DOSE over 30 miuntes IVPB ×2 (09:00)
--- NOTE | 2016-12-24 09:09 | PN ---
Subjective Date of Service: 12/24/16 Interval History: Mr. Hand was transferred to the ICU after a CAT call for hypotension and decreased responsiveness. Overnight, patient had developed urinary retention but a stone was unable to be successfully placed. On arrival to the ICU, patient was placed on levophed with IV fluids for persistent hypotension. Dr. Kraft, Urologist, has attempted to place a stone without success. Dr. Kraft reviewed with family that any further intervention would require the patient to be taken to the OR. Family declined and are opting for comfort care only. Objective Active Medications: Acetaminophen (Tylenol Tab*) 650 mg PO Q4H PRN Atorvastatin Calcium (Lipitor*) 40 mg PO DAILY TEMI Carvedilol (Coreg Tab*) 3.125 mg PO BID TEMI Vancomycin HCl 1,000 mg/ (Sodium Chloride) 250 mls @ 166.667 mls/hr IVPB ONCE ONE Piperacillin Sod/Tazobactam (Sod 3.375 gm/ Sodium Chloride) 100 mls @ 200 mls/ hr IVPB ONCE ONE Vancomycin HCl 1,000 mg/ (Sodium Chloride) 250 mls @ 166.667 mls/hr IVPB Q12H TEMI Piperacillin Sod/Tazobactam (Sod 3.375 gm/ Sodium Chloride) 100 mls @ 200 mls/ hr IVPB ONCE ONE Influenza Virus Vaccine (Fluarix *Quad* 2017-18*) 0.5 ml IM .ONCE ONE Levothyroxine Sodium (Synthroid Tab*) 75 mcg PO 0600 TEMI Omeprazole (Prilosec Cap*) 20 mg PO BID TEMI Ondansetron HCl (Zofran Inj*) 4 mg IV Q6H PRN Pharmacy Consult (Zosyn Per Pharmacy*) 1 note FOLLOW UP .ZOSYN PER PHARMACY TEMI Pharmacy Consult (Vancomycin Per Pharmacy*) 1 note FOLLOW UP . PRN Pneumococcal Polyvalent Vaccine (Pneumococcal Vac 23-Polyvalent*) 0.5 ml IM .ONCE ONE Polyethylene Glycol/Electrolytes (Miralax*) 17 gm PO DAILY TEMI Prednisone (Deltasone Tab*) 5 mg PO BID TEMI Vital Signs 12/23/16 12/23/16 12/23/16 13:00 13:30 14:00 Temperature Pulse Rate 60 60 63 Respiratory Rate Blood Pressure 120/65 132/71 (mmHg) O2 Sat by Pulse 91 96 93 Oximetry 12/23/16 12/23/16 12/23/16 14:01 14:15 14:30 Temperature 97.3 F Pulse Rate 61 62 Respiratory 19 Rate Blood Pressure 116/72 96/58 90/60 (mmHg) O2 Sat by Pulse 96 98 Oximetry 12/23/16 12/23/16 12/23/16 17:08 20:00 20:14 Temperature 98.4 F Pulse Rate 74 62 Respiratory 16 16 16 Rate Blood Pressure 102/58 98/58 (mmHg) O2 Sat by Pulse 88 100 Oximetry 12/24/16 12/24/16 12/24/16 00:00 03:40 06:11 Temperature 98.4 F 98.3 F Pulse Rate 60 69 Respiratory 16 16 20 Rate Blood Pressure 103/62 105/63 (mmHg) O2 Sat by Pulse 100 98 Oximetry 12/24/16 12/24/16 12/24/16 07:24 07:40 07:50 Temperature 102.1 F 101.9 F Pulse Rate 73 38 Respiratory 24 48 40 Rate Blood Pressure 93/35 46/32 80/50 (mmHg) O2 Sat by Pulse 73 Oximetry 12/24/16 12/24/16 12/24/16 07:57 08:00 08:01 Temperature Pulse Rate 61 61 Respiratory 30 32 31 Rate Blood Pressure 45/32 50/31 (mmHg) O2 Sat by Pulse 95 93 Oximetry 12/24/16 12/24/16 12/24/16 08:09 08:12 08:19 Temperature 100.5 F Pulse Rate 64 64 66 Respiratory 29 32 41 Rate Blood Pressure 165/104 61/39 61/35 (mmHg) O2 Sat by Pulse 95 99 98 Oximetry Oxygen Devices in Use Now: None Appearance: Male lying in bed with eyes closed, grimacing slightly Eyes: No Scleral Icterus Ears/Nose/Mouth/Throat: - - mucous membranes dry Neck: Trachea Midline Respiratory: Symmetrical Chest Expansion and Respiratory Effort, Clear to Auscultation Cardiovascular: No Edema, - - Systolic murmur at sternal bornder Abdominal: No Hepatosplenomegaly Extremities: No Edema Neurological: - - Seen to move all extremites spontaneously, does not follow commands, nonverbal Result Diagrams: 12/24/16 04:55 12/24/16 04:55 Additional Lab and Data: Lab Results 12/23/16 12/23/16 12/23/16 Range/Units 08:20 08:20 09:45 WBC 14.5 H (3.5-10.8) 10^3/ul RBC 4.24 (4.0-5.4) 10^6/ul Hgb 13.1 L (14.0-18.0) g/dl Hct 40 L (42-52) % MCV 93 (80-94) fL MCH 31 (27-31) pg MCHC 33 (31-36) g/dl RDW 17 H (10.5-15) % Plt Count 253 (150-450) 10^3/ul MPV 8 (7.4-10.4) um3 Neut % (Auto) 88.2 H (38-83) % Lymph % (Auto) 2.6 L (25-47) % Dixie % (Auto) 8.6 (1-9) % Eos % (Auto) 0.2 (0-6) % Baso % (Auto) 0.4 (0-2) % Absolute Neuts (auto) 12.8 H (1.5-7.7) 10^3/ul Absolute Lymphs (auto) 0.4 L (1.0-4.8) 10^3/ul Absolute Monos (auto) 1.2 H (0-0.8) 10^3/ul Absolute Eos (auto) 0 (0-0.6) 10^3/ul Absolute Basos (auto) 0.1 (0-0.2) 10^3/ul Absolute Nucleated RBC 0.01 10^3/ul Nucleated RBC % 0 Sodium 137 (133-145) mmol/L Potassium 2.9 L (3.5-5.0) mmol/L Chloride 94 L (101-111) mmol/L Carbon Dioxide 31 (22-32) mmol/L Anion Gap 12 H (2-11) mmol/L BUN 115 H (6-24) mg/dL Creatinine 2.54 H (0.67-1.17) mg/dL Est GFR ( Amer) 30.9 (>60) Est GFR (Non-Af Amer) 24.1 (>60) BUN/Creatinine Ratio 45.3 H (8-20) Glucose 105 H (70-100) mg/dL Calcium 9.5 (8.6-10.3) mg/dL Magnesium 3.0 H (1.9-2.7) mg/dL Total Bilirubin 1.00 (0.2-1.0) mg/dL AST 23 (13-39) U/L ALT 15 (7-52) U/L Alkaline Phosphatase 59 (34-104) U/L C-Reactive Protein 25.93 H (< 5.00) mg/L Total Protein 7.0 (6.4-8.9) g/dL Albumin 3.7 (3.2-5.2) g/dL Globulin 3.3 (2-4) g/dL Albumin/Globulin Ratio 1.1 (1-3) Lipase 29 (11.0-82.0) U/L Urine Color Yellow Urine Appearance Clear Urine pH 6 (5-9) Ur Specific [place] 1.010 (1.010-1.030) Urine Protein Negative (Negative) Urine Ketones Negative (Negative) Urine Blood Negative (Negative) Urine Nitrate Negative (Negative) Urine Bilirubin Negative (Negative) Urine Urobilinogen Negative (Negative) Ur Leukocyte Esterase Negative (Negative) Urine WBC (Auto) Absent (Absent) Urine RBC (Auto) Trace(0-2/hpf) (Absent) Ur Squamous Epith Cells Present H (Absent) Urine Bacteria Absent (Absent) Hyaline Casts Present H (Absent) Urine Glucose Negative (Negative) Urine Ascorbic Acid * H (Negative) Microbiology and Other Data: Microbiology 12/24/16 02:45 Stool Gross Appearance - Final Stool C. difficile DNA Amplification - Final 027 Presumptive NEGATIVE Toxigenic C.diff NEGATIVE Stool Lactoferrin - Final 12/24/16 02:45 Stool Gross Appearance - Final Stool Assess/Plan/Problems-Billing Assessment: Mr. Hand is an 86 yo male with a PMH of [place], CHF with EF 30-35%, severe aortic stenosis, and CKD who was admitted on 12/23/16 with acute renal failure now s/p CAT call and transfer to ICU for hypotension and unresponsiveness. Family opting now for comfort care only. - Patient Problems (1) Need for comfort care Comment: - Morphine prn, adjust as needed for patient comfort. - Atropine SL prn. (2) DNR (do not resuscitate) Comment: - Comfort care (3) DVT prophylaxis Comment: - Not indicated. Status and Disposition: Inpatient. Comfort care, poor prognosis, may pass within next 24 hours.
[2016-12-24] MEDS ORDERED: Atropine 1% (ORAL/SL)* 15 ML BTL SL PRN (10:07)
[2016-12-24] MEDS ORDERED: Morphine INJ* 4 MG/ML 1 ML CARPUJECT IV PRN (10:07)
--- NOTE | 2016-12-24 11:44 | CONSULT ---
Consult Consult: Critical Care Medicine 86 yo male urgently transferred to ICU this AM after a reapid response call on the regular floor. Patient poorly responsive, tachypneic, hypotensive (to 50s systolic), and febrile (to 102.9 F). Came to ICU on face crissy oxygen. Presumed septic...orders already generated for Vanco and Zosyn and Levophed by Dr Foster. Patient initial SBP~60. Ordered 1 liter NS with 100 ml/hr to follow. Family already notified this AM by regular floor of decline in status and on the way to the hospital. Patient has a self-signed MOLST establishing DNR and nurses who brought him to unit from floor reported he also did not want to be on a respirator. Patient admitted ytdy pre-renal azotemia due to presumed hypovolemia secondary to diuretics and poor PO intake. Noted there was difficulty placind a stone catheter and Urology has been called for stone placement. PMH includes CAD with LA in past, Cardiomyopathy (EF~30%) and CHF, Severe Ao Stenosis with prior refusal of TAVR, TANA-noncompliant with CPAP, GERD, PMR, Prostate Ca s/p total prostatectomy, Hypothyroidism, GI Bleed, Spinal Stenosis, and Perm Pacer in place Allergy pregabalin, tetanus toxoid SBP 61 HR 68 RR 34 SpO2 95 (FM) Skin no diaphoresis, dry flaking skin, multiple scattered ecchymotic areas, minimal axillary moisture, nail beds dusky, sclerae anicteric, poor turgor (+) tenting Neck veins not distended Lungs with bilateral air entry, no wheezes Cor no rub, no murmur Abd soft, nontender Ext no edema RUE with PIV x1 7.51/29/85 WBC 16.3 Hgb 11.7 Plt 223 BUN/Creat 94/1.79 K 3.4 HCO3 28 CXR small lung volumes, atelectasis vs consolidation LLL IMP: Suspected septic shock ...source unclear as yet Hypovolemia Prerenal Azotemia Cardiomyopathy with hx CHF Hx CAD and LA Hx Severe Ao Stenosis Perm Pacer Hx TANA noncompliant with mask therapy Hx Prostate Ca s/p total prostatectomy Unsuccessful stone placement Hx GERD Hx Hypothyroidism Hx GI Bleed Hx Spinal Stenosis PLAN: Proceed with Abx as ordered IV NS as ordered already Family came to bedside... and daughter...discussed situation with them, reviewed fact that he made self DNR and voiced to nursing staff not wanting ventilatory support. They confirm these desires. Further reviewed with them treatment options in near term. They further set limits on dialytic therapy and do not want any invasive hemodynamic monitoring lines. They essentially want only therapy with simple/routine care interventions when I spoke to them. MOLST completed by me with and daughter to reflect above limitations. Later, after failure of placement of a previously ordered PICC they vopiced wanting no further attempts to secure any IV access. Also when Urologist was unsuccessful at placement of stone they further refused consideration of a suprapubic cystostomy or any operative intervention. It further appears they are leaning toward further limitting care and possibly moving to comfort oriented care. The above all seem reasonable decisions by family and to respect their desires. Discussed with Pharm, Nursing, Nutrition, Dr Foster and service SUZANNE, and Urologist T>35 min, [facility] services rendered this AM
--- NOTE | 2016-12-24 13:01 | PN ---
Progress Note - Progress Note Date of Service: 12/24/16 Note: Arrived to room just as patient had . No spontaneous respirations and no heart tones. Patient's granddaughter at the bedside. Tearful and calling her MOther to come back. Apparently Daughter took down to the parking lot to wait for her ride home. Daughter arrived back stating he did that on purpose as soon as the daughter and left. Present for emotional support. Family had no questions at this time. Have asked linoleum layer helper services to come support the family. The should be arriving shortly.
[2016-12-24] MEDS ORDERED: ZOSYN 3.375 GM Q8H per EXTENDED INFUSION IVPB SCH ×2 (14:00)
[2016-12-24 14:11] VITALS: BP 62/40
[2016-12-25] MEDS ORDERED: Pneumococcal *Vac Polyvalent 0.5 ML VIAL IM ONE (09:00)
[2016-12-25] MEDS ORDERED: Influenza VAC *QUAD* 2017-18* 0.5 ML SYRINGE IM ONE (09:00)
--- NOTE | 2016-12-25 14:31 | DS ---
CC: Dr. Pena* [facility] MEDICINE DISCHARGE SUMMARY: DATE OF ADMISSION: 12/23/16 DATE OF : 12/24/16 PRIMARY CARE PHYSICIAN: Dr. Pena ATTENDING PHYSICIAN: Dr. Benigno Foster* (dictation provided by Lydia Singh NP ). PRIMARY CAUSE OF : 1. Sepsis. 2. Question gastroenteritis. 3. Acute urinary obstruction with renal failure. SECONDARY DIAGNOSES: 1. History of myocardial infarction. 2. Systolic congestive heart failure. 3. Cardiomyopathy, ejection fraction 30% to 35%. 4. Severe aortic stenosis, status post TAVR. 5. Obstructive sleep apnea, noncompliant with CPAP. 6. Gastroesophageal reflux disease. 7. Polymyalgia rheumatica. 8. History of prostate cancer, status post prostatectomy. 9. Hypothyroidism. 10. History of GI bleed. 11. Spinal stenosis. 12. History of pacemaker. HOSPITAL COURSE: Mr. Hand is an 86-year-old male with a complicated past medical history including history of CA, chronic systolic congestive heart failure with cardiomyopathy and ejection fraction 30% to 35%, aortic stenosis with refusal for TAVR, who presented to the hospital on 12/23/16 with concern for weakness and frequent stools. Please see the dictated H and P from Camron Chavira for complete details. Per the report, the patient had noted that the patient had become progressively weak over the last couple of weeks and had been losing weight. The night prior to admission, reported that he had been having bowel movements all night long, but they were formed. He became increasingly weak and lethargic and was brought to the emergency room. In the emergency room, the patient was noted to have acute kidney injury with a creatinine of 2.54 and a BUN of 115. He had a leukocytosis with a white count of 14.5. Urine showed no evidence of infection. Chest x-ray showed no evidence of infiltrate. Abdomen and pelvis CT showed a new left inguinal hernia with no evidence of bowel obstruction or inflammatory change. The patient was admitted to the hospital with concern for acute kidney injury with suspicion for sepsis of unknown etiology. Mr. Hand showed evidence for urinary retention through the evening and multiple attempts were made to place a Jolly catheter without success. Plans were for Dr. Kraft to see the patient in a.m. to place the Jolly. Shortly thereafter, the patient became more unresponsive and had hypotension. He was transferred to the intensive care unit where intravenous fluids and Levophed were initiated. Dr. Kraft was at the bedside and attempted to place a Jolly catheter without success. This was reviewed with the patient's family, who throughout the hospitalization had indicated that they wanted limited interventions. Dr. Kraft explained to them that in order to place a Jolly, the patient will need to be taken to the OR and the patient's family decided against that treatment given the patient's multiple severe comorbidities. The patient's family opted for comfort care and Mr. Hand at 12:50 with family in the room on 12/24/16. TIME SPENT: Approximately 60 minutes were spent in the discharge of this patient, more than half time spent with the patient at the bedside with his family reviewing the events of this hospitalization and reviewing the plan of care throughout the day. LYDIA SINGH NP [id number]/[facility] #: [id number] ISMAEL
== END 2016-12-24 12:50 | disposition expired | DRG 872 ==
LOC: ED 05:49 → MEDTELE 12:57 → ICU 12-24 07:53
PROVIDERS: ADMIT Internal Medicine; ATTEND Internal Medicine
DX: A41.9 Sepsis, unspecified organism (principal); N17.9 Acute kidney failure, unspecified; I95.9 Hypotension, unspecified; I42.9 Cardiomyopathy, unspecified; E86.1 Hypovolemia; I50.20 Unspecified systolic (congestive) heart failure; N13.9 Obstructive and reflux uropathy, unspecified; I35.0 Nonrheumatic aortic (valve) stenosis; G47.33 Obstructive sleep apnea (adult) (pediatric); M35.3 Polymyalgia rheumatica; E03.9 Hypothyroidism, unspecified; M48.00 Spinal stenosis, site unspecified; R33.9 Retention of urine, unspecified; Z66 Do not resuscitate; K52.9 Noninfective gastroenteritis and colitis, unspecified; K21.9 Gastro-esophageal reflux disease without esophagitis; Z85.46 Personal history of malignant neoplasm of prostate; Z95.0 Presence of cardiac pacemaker; I25.2 Old myocardial infarction; Z79.52 Long term (current) use of systemic steroids; Z79.899 Other long term (current) drug therapy; Z88.7 Allergy status to serum and vaccine; Z88.8 Allergy status to other drugs, medicaments and biological substances; Z87.891 Personal history of nicotine dependence
CPT/HCPCS: 36415; 36600; 70450; 71010; 74020; 74176; 76857; 80048; 80053; 81003; 82803; 83630; 83690; 83735; 85025; 86140; 87040; 87045; 87046; 87077; 87425; 87493; 87899; 93005; 94760; A9270-GY; J1644; J2270; J2543; J3370; J3480; J7512